=== PATIENT | female | born 1945 | race Caucasian/White ===

== ENCOUNTER 2020-12-15 08:18 | Outpatient (REF) | payer MEDICARE, SELFPAY ==
--- NOTE | ~2020-12-15 | MM_ITS ---
EXAMINATION: BONE DENSITOMETRY CLINICAL INDICATION: Vitamin B12 deficiency. 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 COMPARISON: Previous BD dated 12/15/2015 and baseline BD dated 12/28/2009. TECHNIQUE: Using a Done In :60 Seconds DXA System (software version: 13.1) manufactured by [employer], dual-energy x-ray absorptiometry was performed of the lumbar spine and left hip. The images are of good technical quality. Summary results are attached. FINDINGS: AP SPINE L1-L4: Current: BMD 1.304 g/cm2, Z-score 1.6, T-score 1.0, normal, 3.3% increase from previous, 9.3% increase from baseline (<5% change is not significant). Prior: BMD 1.262 g/cm2. Baseline: BMD 1.193 g/cm2. LEFT FEMUR, NECK: Current: BMD 0.796 g/cm2, Z-score -0.5, T-score -1.7, osteopenia. Prior: BMD 0.830 g/cm2. Baseline: BMD 0.972 g/cm2. LEFT FEMUR, TOTAL: Current: BMD 0.951 g/cm2, Z-score 0.5, T-score -0.4, normal, 1.7% decrease from previous, 10.5% decrease from baseline (<5% change is not significant). Prior: BMD 0.967 g/cm2. Baseline: BMD 1.063 g/cm2. IDENTIFIED RISK FACTORS: Menopause, height loss, low calcium intake. HISTORY OF FRACTURE: None listed. MEDICATIONS: None listed. MM/XR DEXA axial skeleton IMPRESSION: 1. DIAGNOSIS: Osteopenia based on the lowest T-score value of -1.7 in the femoral neck applying World Health Organization criteria. 2. 10-YEAR FRACTURE RISK PREDICTION, FRAX: Major osteoporotic fracture (clinical spine, forearm, hip or shoulder) 11.8%. Hip fracture 2.7%. 3. Treatment Recommendations: NOF guidelines recommend consideration for treatment in postmenopausal women and men age 50 and older presenting with the following: -A hip or vertebral (clinical or morphometric) fracture. -T-score less than or equal to -2.5 at the femoral neck or spine after appropriate evaluation to exclude secondary causes. -Low bone mass at the hip or spine and a 10-year fracture probability by FRAX of greater than or equal to 3% for hip fracture or greater than or equal to 20% for major osteoporotic fracture based on the [place] adapted WHO algorithm. 4. Other Recommendations: All treatment decisions require clinical judgment and consideration of individual patient factors, including patient preferences, comorbidities, previous drug use, risk factors not captured in the FRAX model (e.g. frailty, falls, vitamin D deficiency, increased bone turnover, interval significant decline in bone density) and possible under or overestimation of fracture risk by FRAX. Additional medical evaluation for secondary cause of low bone mineral density may be appropriate. FUTURE SCAN RECOMMENDATION: People with diagnosed cases of osteoporosis or at high risk for fracture should have regular bone mineral density tests. For patients eligible for Medicare, routine testing is allowed once every 2 years. The testing frequency can be increased to one year for patients who have rapidly progressing disease, those who are receiving or discontinuing medical therapy to restore bone mass, or have additional risk factors.
--- NOTE | ~2020-12-15 | MM_ITS ---
EXAMINATION: MM SCREENING DIGITAL BREAST TOMOSYNTHESIS, BILATERAL CLINICAL INFORMATION: Screening. Asymptomatic. The lifetime risk of breast cancer based on the Tyrer-Cuzick Model is 2.3%. COMPARISON: Mammography: December 15, 2015 and studies dating back to February 26, 2013 TECHNIQUE: Digital breast tomosynthesis is performed in both the craniocaudal and mediolateral oblique views along with computer-aided detection (CAD). Synthesized 2D images are generated from the tomosynthesis. FINDINGS: There are scattered areas of fibroglandular density (ACR BI-RADS breast composition Category b). There are no significant masses, abnormal calcifications, or other abnormalities. MM/MM tomosynthesis screening BI IMPRESSION: There are no significant changes from prior study. ASSESSMENT: BI-RADS 1: Negative RECOMMENDATION: Routine annual mammography screening. This patient's information was entered into a reminder system with a target due date for their next mammogram.
[2020-12-15 08:48] LABS: MANUAL DIFF FLAG NO
[2020-12-15 08:51] LABS: Basophils Percent Auto 0.6 % (0-2); Eosinophils Absolute Auto 0.1 X10*3/uL (0.0-0.4); Eosinophils Percent Auto 1.4 % (0-4); Hematocrit 42.1 % (37-47); Hemoglobin 13.9 g/dl (12.0-16.0); Imm Gran Abs Auto 0.02 X10*3/uL (0.00-0.03); Imm Gran Pct Auto 0.4 % (0.0-0.4); Immature Retic Fraction 8.3 % (3.0-15.9); Lymphocytes Absolute Auto 1.7 X10*3/uL (1.2-4.9); Lymphocytes Percent Auto 35.1 % (20-40); Mean Platelet Volume 10.5 fL (9.4-12.3); Monocytes Absolute Auto 0.5 X10*3/uL (0.1-1.2); Monocytes Percent Auto 10.3 % (2-11); Neutrophils Absolute Auto 2.5 X10*3/uL (2.0-8.3); Neutrophils Percent Auto 52.2 % (45-73); Platelet Count 236 X10*3/uL (160-400); Red Blood Count 4.48 X10*6/uL (4.20-5.50); Red Cell Distribution Width 12.6 % (11.0-16.0); Retic HGB Equivalent 36.1 pg (30.0-35.0); Reticulocyte Percent 1.7 % (0.5-1.8); Reticulocytes Absolute 0.077 X10*6/uL (0.026-0.095); White Blood Count 4.8 X10*3/uL (4.8-10.8)
[2020-12-15 09:02] LABS: Estimated Average Glucose 111 mg/dL; Hemoglobin A1C 133.2986 umol/L; Hemoglobin A1c % 5.5 %
[2020-12-15 09:22] LABS: Alanine Aminotransferase 18 U/L (0-31); Albumin Level 4.3 g/dL (3.5-5.0); Alkaline Phosphatase 77 U/L (39-117); Anion Gap 13 (12-20); Aspartate Amino Transferase 21 U/L (5-31); Bilirubin Total 0.6 mg/dL (0.0-1.0); Blood Urea Nitrogen 17 mg/dL (9-16); Calcium 9.7 mg/dL (8.4-10.2); Carbon Dioxide 27 mmol/L (22-29); Chloride 106 mmol/L (96-108); Cholesterol 212 mg/dL; Estimated Glomerular Filt Rate > 60; Glucose Random 111 mg/dL (60-115); HDL Cholesterol 69 mg/dL; Iron 85 mcg/dL (30-160); LDL Cholesterol Calculated 121 mg/dl; Percent Iron Saturation 25 % (15-50); Potassium 4.4 mmol/L (3.3-5.1); Sodium 142 mmol/L (135-145); Total Iron Binding Capacity 336 mcg/dL (228-428); Total Protein 6.8 g/dL (6.5-8.0); Triglycerides 112 mg/dL; Unsaturated Iron Binding 251 ug/dL
[2020-12-15 09:45] LABS: Ferritin 164 ng/mL (10-250); Free T4 (Free Thyroxine) 1.25 ng/dL (0.71-1.85); Thyroid Stimulating Hormone 0.49 uIU/mL (0.32-4.0); Vitamin D 25-OH Total 12.6 ng/mL (>30)
[2020-12-15 10:00] LABS: Folate 10.1 ng/mL (> or = 4.0); Vitamin B12 228 pg/mL (200-900)
== END 2020-12-15 08:19 | disposition home or self-care (01) ==
LOC: HO.MAMMO 08:18
PROVIDERS: PCP Internal Medicine; Visit Provider Internal Medicine
DX: Z12.31 Encounter for screening mammogram for malignant neoplasm of breast (principal); Z13.820 Encounter for screening for osteoporosis; M85.80 Other specified disorders of bone density and structure, unspecified site; Z78.0 Asymptomatic menopausal state; D51.0 Vitamin B12 deficiency anemia due to intrinsic factor deficiency; E03.9 Hypothyroidism, unspecified; E78.00 Pure hypercholesterolemia, unspecified; R73.02 Impaired glucose tolerance (oral)
CPT/HCPCS: 36415; 77063; 77067; 77080; 80053; 80061; 82306; 82607; 82728; 82746; 83036; 83540; 84439; 84443; 85025; 85045

== ENCOUNTER 2021-03-15 13:05 | Outpatient (REF) | payer MEDICARE, SELFPAY ==
--- NOTE | ~2021-03-15 | US_ITS ---
EXAMINATION: US EXTRACRANIAL CAROTID DUPLEX, BILATERAL CLINICAL INFORMATION: Syncope and collapse COMPARISON: None TECHNIQUE: Real-time ultrasound and Doppler techniques (integrating B-mode 2-D vascular images, Doppler spectral analysis and color-flow Doppler imaging) were utilized to interrogate the extracranial carotid arteries, the vertebral arteries and proximal subclavian arteries bilaterally. The degree of stenosis is determined by criteria similar to NASCET. FINDINGS: Right Side: 1. There is no significant atherosclerotic plaque seen in the bifurcation/proximal ICA region. 2. The common carotid artery PSV proximally is 82 cm/s and distally 51 cm/s. 3. The proximal internal carotid artery velocities are 72 cm/s systolic and 20 cm/s diastolic. 4. The proximal external carotid artery PSV is 68 cm/s. 5. The vertebral artery shows antegrade flow. 6. The subclavian artery waveforms are normal. Left Side: 1. There is mild atherosclerotic plaque seen in the bifurcation/proximal ICA region. 2. The common carotid artery PSV proximally is 106 cm/s and distally 74 cm/s. 3. The proximal internal carotid artery velocities are 73 cm/s systolic and 23 cm/s diastolic. 4. The proximal external carotid artery PSV is 73 cm/s. 5. The vertebral artery shows antegrade flow. 6. The subclavian artery waveforms are normal. US/US carotid duplex BI IMPRESSION: 1. RIGHT: Normal right internal carotid artery without atherosclerotic plaque or hemodynamically significant stenosis. 2. LEFT: Minimal, non-hemodynamically significant stenosis of the proximal left internal carotid artery corresponding to a 0-49% stenosis by velocity criteria.
--- NOTE | 2021-03-15 14:12 | ECG_ITS ---
Hook-up date: 2021-03-15 14:27:00 Duration: 47:59:00 Test Indications: SYNCOPE AND COLLAPSE Medications: 58985 QRS complexes 12 Ventricular ectopics which represent <1 % of total QRS comp. 46281 Supraventricular ectopics which represent 16 % of total QRS comp. * Paced QRS complexs which represent % of total QRS comp. VENTRICULAR ECTOPY 10 Isolated 0 Bigeminal Cycles 1 Couplets 0 Runs 0 Beats in Runs * Beats LONGEST at * BPM at :: -- * Beats FASTEST at * BPM at :: -- SUPRAVENTRICULAR ECTOPY 8886 Isolated 1438 Couplets 1041 Runs 3347 Beats in Runs 11 Beats LONGEST at 105 BPM at 09:08:14 2021-03-16 3 Beats FASTEST at 220 BPM at 11:20:38 2021-03-16 HEART RATES 55 MIN at 07:59:42 2021-03-16 61 AVG 110 MAX at 14:29:25 2021-03-15 LONGEST RR 1.7680 secs at 11:17:41 2021-03-16 S-T LEVELS Channel 1 - 128 mm at 14:27:00 2021-03-15 - 128 mm at 14:27:00 2021-03-15 Channel 2 - 128 mm at 14:27:00 2021-03-15 - 128 mm at 14:27:00 2021-03-15 Channel 3 - 128 mm at 03:34:61 -- - 128 mm at 03:34:61 Basic rhythm Normal sinus rhythm No long pause or profound bradycardia Frequent Sinus bradycardia , 53% of total beats Frequent Premature atrial complexes , 17% of total beats Multiple short runs of SVE, c/w SVT longest 11 beats Patient did not report any symptoms in the diary Referred By: Larry Arellano Overread By: SATYA CHANG MD
== END 2021-03-15 13:06 | disposition home or self-care (01) ==
LOC: HO.US 13:05
PROVIDERS: PCP Internal Medicine; Visit Provider Internal Medicine
DX: R55 Syncope and collapse (principal)
CPT/HCPCS: 93225; 93226; 93880

== ENCOUNTER 2021-04-10 12:55 | Outpatient (REF) | payer MEDICARE, SELFPAY ==
--- NOTE | 2021-04-10 12:59 | EEG_ITS ---
The waking background activity consists of a well-defined 10 to 11 hertz alpha that is seen symmetrically and attenuates well with eye opening while low-voltage fast frequencies predominant anteriorly. Drowsiness is characterized by diffuse theta slowing. During sleep stages 1 through 3 of sleep are noted with symmetrical frontal central sleep spindles, vertex sharp transients, and K complexes. Arousals are frequent and unremarkable. The patient remains asymptomatic except for some chills at times. No focal, lateralizing, or paroxysmal discharges seen. IMPRESSION: This 24-hour ambulatory EEG is within normal limits with the patient remaining asymptomatic. The EKG rhythm shows fairly an irregular heart rhythm with bradycardia and possible periods of atrial fibrillation. A 72-hour Holter monitor is recommended. MD JESSICA Fan/VANDANA / [phone]
== END 2021-04-10 12:56 | disposition home or self-care (01) ==
LOC: HO.NEURO 12:55
PROVIDERS: PCP Internal Medicine; Visit Provider Internal Medicine
DX: R55 Syncope and collapse (principal); R00.1 Bradycardia, unspecified
CPT/HCPCS: 95708

== ENCOUNTER → 2021-06-08 13:41 | Outpatient (REF) | payer MEDICARE, SELFPAY ==
--- NOTE | 2021-06-08 13:47 | HM_ITS ---
Total monitoring time 2 days in 21 hours. Underlying rhythm is sinus. Minimum heart rate 51/Min. Maximum 120/Min. Average 64/Min. Frequent supraventricular ectopy with burden of almost 12%. Isolated beats, couplets, short runs noted. Longest run is 14 beats and atrial fibrillation cannot be excluded in this strip. Rare PVCs with minimal burden. No patient events. MTDD
== END ==
LOC: HO.CARD 13:41
PROVIDERS: Visit Provider Internal Medicine
DX: R55 Syncope and collapse (principal)
CPT/HCPCS: 93242

== ENCOUNTER 2021-12-26 10:35 | Outpatient (REF) | payer MEDICARE, SELFPAY ==
--- NOTE | ~2021-12-26 | MM_ITS ---
EXAMINATION: MM SCREENING DIGITAL BREAST TOMOSYNTHESIS, BILATERAL CLINICAL INFORMATION: Screening. Asymptomatic. The lifetime risk of breast cancer based on the Tyrer-Cuzick Model is 2%. COMPARISON: Mammography: 12/15/2020; outside mammography 09/22/2018, 05/19/2017 ([facility]). TECHNIQUE: Digital breast tomosynthesis is performed in both the craniocaudal and mediolateral oblique views along with computer-aided detection (CAD). Synthesized 2D images are generated from the tomosynthesis. Additional bilateral exaggerated CC views are provided. FINDINGS: There are scattered areas of fibroglandular density (ACR BI-RADS breast composition Category b). There is denser bilateral parenchymal tissue composition in the anterior breasts. Parenchymal pattern is similar to prior studies. There is no developing density or interval mass or architectural abnormality. No abnormal calcifications. The axilla and skin contours are unremarkable. MM/MM tomosynthesis screening BI IMPRESSION: No significant changes from prior exams. ASSESSMENT: BI-RADS 1: Negative RECOMMENDATION: Routine annual mammography screening. This patient's information was entered into a reminder system with a target due date for their next mammogram.
--- NOTE | ~2021-12-26 | XR_ITS ---
EXAMINATION: BILATERAL KNEE. CLINICAL INFORMATION: Pain. There is stability. COMPARISON: None TECHNIQUE: 2 views each knee. FINDINGS: Right knee: There is segment loss of medial and patellofemoral compartment joint space with moderate periarticular spurring patellofemoral compartment. No loose bodies seen. There is no bony erosive changes. No fracture or dislocation. Left knee: There is severe loss of medial and patellofemoral compartment with moderate periarticular spurring. There is a small infrapatellar loose body. Minimal suprapatellar joint effusion seen. No acute fracture or bony erosive changes. XR/XR knee RT 2V IMPRESSION: Significant degenerative changes in medial and patellofemoral compartment of both knees. No joint effusion seen. There is a small loose body seen in the infrapatellar bursa.
--- NOTE | ~2021-12-26 | XR_ITS ---
EXAMINATION: BILATERAL KNEE. CLINICAL INFORMATION: Pain. There is stability. COMPARISON: None TECHNIQUE: 2 views each knee. FINDINGS: Right knee: There is segment loss of medial and patellofemoral compartment joint space with moderate periarticular spurring patellofemoral compartment. No loose bodies seen. There is no bony erosive changes. No fracture or dislocation. Left knee: There is severe loss of medial and patellofemoral compartment with moderate periarticular spurring. There is a small infrapatellar loose body. Minimal suprapatellar joint effusion seen. No acute fracture or bony erosive changes. XR/XR knee LT 2V IMPRESSION: Significant degenerative changes in medial and patellofemoral compartment of both knees. No joint effusion seen. There is a small loose body seen in the infrapatellar bursa.
== END 2021-12-26 10:36 | disposition home or self-care (01) ==
LOC: HO.MAMMO 10:35
PROVIDERS: PCP Internal Medicine; Visit Provider Internal Medicine
DX: M25.562 Pain in left knee (principal); M25.561 Pain in right knee; M25.369 Other instability, unspecified knee; Z12.31 Encounter for screening mammogram for malignant neoplasm of breast
CPT/HCPCS: 73560; 77063; 77067

== ENCOUNTER 2022-02-07 08:15 | Outpatient (REF) | payer MEDICARE, SELFPAY ==
[2022-02-07 08:33] LABS: MANUAL DIFF FLAG NO
[2022-02-07 08:49] LABS: Basophils Percent Auto 0.6 % (0-2); Eosinophils Absolute Auto 0.1 X10*3/uL (0.0-0.4); Eosinophils Percent Auto 1.7 % (0-4); Hematocrit 42.4 % (37.0-47.0); Imm Gran Abs Auto 0.01 X10*3/uL (0.00-0.03); Imm Gran Pct Auto 0.2 % (0.0-0.4); Immature Retic Fraction 7.4 % (3.0-15.9); Lymphocytes Absolute Auto 1.9 X10*3/uL (1.2-4.9); Lymphocytes Percent Auto 38.9 % (20-40); Mean Corpuscular Hemoglobin 30.4 pg (27.0-33.0); Mean Corpuscular Volume 92.2 fL (80.0-98.0); Monocytes Absolute Auto 0.6 X10*3/uL (0.1-1.2); Monocytes Percent Auto 12.8 % (2-11); Neutrophils Absolute Auto 2.2 x10*3/uL (2.0-8.3); Neutrophils Percent Auto 45.8 % (45-73); Platelet Count 258 X10*3/uL (160-400); Red Cell Distribution Width 12.5 % (11.0-16.0); Reticulocyte Percent 1.6 % (0.5-1.8); Reticulocytes Absolute 0.074 X10*6/uL (0.026-0.095); White Blood Count 4.8 X10*3/uL (4.8-10.8)
[2022-02-07 08:56] LABS: D Dimer High Sensitivity 378 NG/ML
[2022-02-07 08:58] LABS: Estimated Average Glucose 105 mg/dL; Hemoglobin A1c % 5.3 %
[2022-02-07 09:11] LABS: Alanine Aminotransferase 10 U/L (0-31); Albumin Level 4.1 g/dL (3.5-5.0); Alkaline Phosphatase 71 U/L (39-117); Anion Gap 14 (12-20); Aspartate Amino Transferase 17 U/L (5-31); Bilirubin Total 0.6 mg/dL (0.0-1.0); Blood Urea Nitrogen 11 mg/dL (9-16); Calcium 9.9 mg/dL (8.4-10.2); Carbon Dioxide 29 mmol/L (22-29); Chloride 103 mmol/L (96-108); Cholesterol 197 mg/dL; Estimated Glomerular Filt Rate > 60; Glucose Random 108 mg/dL (60-115); HDL Cholesterol 73 mg/dL; Iron 113 mcg/dL (30-160); LDL Cholesterol Calculated 97 mg/dl; Percent Iron Saturation 38 % (15-50); Potassium 4.5 mmol/L (3.3-5.1); Sodium 141 mmol/L (135-145); Total Iron Binding Capacity 299 mcg/dL (228-428); Total Protein 6.8 g/dL (6.5-8.0); Triglycerides 139 mg/dL; Unsaturated Iron Binding 186 ug/dL
[2022-02-07 09:33] LABS: Ferritin 174 ng/mL (10-250); Free T4 (Free Thyroxine) 1.62 ng/dL (0.71-1.85); Thyroid Stimulating Hormone 0.42 uIU/mL (0.32-4.0)
[2022-02-07 09:42] LABS: Folate 8.9 ng/mL (> or = 4.0); Vitamin B12 663 pg/mL (200-900)
== END 2022-02-07 08:16 | disposition home or self-care (01) ==
LOC: HO.LAB 08:15
PROVIDERS: PCP Internal Medicine; Visit Provider Internal Medicine
DX: D51.0 Vitamin B12 deficiency anemia due to intrinsic factor deficiency (principal); E03.9 Hypothyroidism, unspecified; E78.00 Pure hypercholesterolemia, unspecified; R73.02 Impaired glucose tolerance (oral); I73.9 Peripheral vascular disease, unspecified
CPT/HCPCS: 36415; 80053; 80061; 82607; 82728; 82746; 83036; 83540; 84439; 84443; 85025; 85045; 85379

== ENCOUNTER 2022-09-13 11:41 | Outpatient (REF) | payer MEDICARE, SELFPAY ==
[2022-09-13 11:59] LABS: MANUAL DIFF FLAG NO
[2022-09-13 12:21] LABS: Basophils Percent Auto 0.5 % (0-2); Eosinophils Percent Auto 0.2 % (0-4); Hemoglobin 13.9 g/dl (12.0-16.0); Imm Gran Abs Auto 0.02 X10*3/uL (0.00-0.03); Imm Gran Pct Auto 0.2 % (0.0-0.4); Lymphocytes Absolute Auto 1.6 X10*3/uL (1.2-4.9); Lymphocytes Percent Auto 19.5 % (20-40); Mean Corpuscular HGB Conc 33.1 g/dl (31.0-35.0); Mean Corpuscular Hemoglobin 30.9 pg (27.0-33.0); Mean Corpuscular Volume 93.3 fL (80.0-98.0); Mean Platelet Volume 10.4 fL (9.4-12.3); Monocytes Absolute Auto 0.6 X10*3/uL (0.1-1.2); Monocytes Percent Auto 7.5 % (2-11); Neutrophils Absolute Auto 5.8 x10*3/uL (2.0-8.3); Neutrophils Percent Auto 72.1 % (45-73); Platelet Count 250 X10*3/uL (160-400); Red Cell Distribution Width 12.2 % (11.0-16.0); White Blood Count 8.1 X10*3/uL (4.8-10.8)
[2022-09-13 12:54] LABS: Alanine Aminotransferase 19 U/L (0-31); Albumin Level 4.2 g/dL (3.5-5.0); Alkaline Phosphatase 107 U/L (39-117); Anion Gap 15 (12-20); Aspartate Amino Transferase 26 U/L (5-31); Bilirubin Total 0.7 mg/dL (0.0-1.0); Blood Urea Nitrogen 23 mg/dL (9-16); Calcium 9.8 mg/dL (8.4-10.2); Carbon Dioxide 25 mmol/L (22-29); Chloride 103 mmol/L (96-108); Estimated Glomerular Filt Rate > 60; Glucose Random 113 mg/dL (60-115); Potassium 4.4 mmol/L (3.3-5.1); Sodium 139 mmol/L (135-145); Total Protein 6.9 g/dL (6.5-8.0)
[2022-09-13 13:14] LABS: Free T4 (Free Thyroxine) 1.32 ng/dL (0.71-1.85); Thyroid Stimulating Hormone 2.51 uIU/mL (0.32-4.0)
[2022-09-13 13:19] LABS: Appearance Urine Clear; Color Urine Yellow; Glucose Urine UA Negative (Negative); Leukocyte Esterase Urine Moderate (2+) (Negative); Nitrite Urine Negative (Negative); PH 5.5 (5.0-9.0); UMIC TRIGGER UA YES; Urine Blood Negative (Negative); Urine Ketones Negative (Negative); Urine Protein Negative (Neg-Trace)
[2022-09-13 13:29] LABS: Bacteria Urine None Seen (None Seen); Hyaline Casts Urine 0-2 /LPF (0-2); RBC Urine 0-2 /HPF (0-2); Squamous Epithelial Cell Urine 0-2 /HPF (0-2); WBC Urine 0-5 /HPF (0-5)
== END 2022-09-13 11:42 | disposition home or self-care (01) ==
LOC: HO.LAB 11:41
PROVIDERS: PCP Internal Medicine; Visit Provider Internal Medicine
DX: B35.6 Tinea cruris (principal); R42 Dizziness and giddiness; E03.9 Hypothyroidism, unspecified
CPT/HCPCS: 36415; 80053; 81001; 84439; 84443; 85025

== ENCOUNTER 2023-02-07 12:45 | Outpatient (REF) | payer MEDICARE, SELFPAY ==
--- NOTE | ~2023-02-07 | MM_ITS ---
EXAMINATION: BONE DENSITOMETRY CLINICAL INDICATION: Osteoporosis. COMPARISON: Previous BD dated 12/15/2020 and baseline BD dated 12/28/2009. TECHNIQUE: Using a [employer] DXA System (software version: 13.1) manufactured by [employer], dual-energy x-ray absorptiometry was performed of the lumbar spine and left hip. The images are of good technical quality. Summary results are attached. FINDINGS: LEFT FEMUR, NECK: Current: BMD 0.797 g/cm2, Z-score -0.4, T-score -1.7, osteopenia. Prior: BMD 0.796 g/cm2. Baseline: BMD 0.972 g/cm2. LEFT FEMUR, TOTAL: Current: BMD 0.911 g/cm2, Z-score 0.3, T-score -0.8, normal, 4.2% decrease from previous, 14.3% decrease from baseline (<5% change is not significant). Prior: BMD 0.951 g/cm2. Baseline: BMD 1.063 g/cm2. AP SPINE L1-L4: Current: BMD 1.280 g/cm2, Z-score 1.5, T-score 0.8, normal, 1.8% decrease from previous, 7.3% increase from baseline (<5% change is not significant). Prior: BMD 1.304 g/cm2. Baseline: BMD 1.193 g/cm2. IDENTIFIED RISK FACTORS: Menopause. HISTORY OF FRACTURE: None listed. MEDICATIONS: Vitamin D. MM/XR DEXA axial skeleton IMPRESSION: 1. DIAGNOSIS: Osteopenia based on the lowest T-score value of -1.7 in the femoral neck applying World Health Organization criteria. 2. 10-YEAR FRACTURE RISK PREDICTION, FRAX: Major osteoporotic fracture (clinical spine, forearm, hip or shoulder) 12.8%. Hip fracture 3.1%. 3. Treatment Recommendations: NOF guidelines recommend consideration for treatment in postmenopausal women and men age 50 and older presenting with the following: -A hip or vertebral (clinical or morphometric) fracture. -T-score less than or equal to -2.5 at the femoral neck or spine after appropriate evaluation to exclude secondary causes. -Low bone mass at the hip or spine and a 10-year fracture probability by FRAX of greater than or equal to 3% for hip fracture or greater than or equal to 20% for major osteoporotic fracture based on the [place] adapted WHO algorithm. 4. Other Recommendations: All treatment decisions require clinical judgment and consideration of individual patient factors, including patient preferences, comorbidities, previous drug use, risk factors not captured in the FRAX model (e.g. frailty, falls, vitamin D deficiency, increased bone turnover, interval significant decline in bone density) and possible under or overestimation of fracture risk by FRAX. Additional medical evaluation for secondary cause of low bone mineral density may be appropriate. FUTURE SCAN RECOMMENDATION: People with diagnosed cases of osteoporosis or at high risk for fracture should have regular bone mineral density tests. For patients eligible for Medicare, routine testing is allowed once every 2 years. The testing frequency can be increased to one year for patients who have rapidly progressing disease, those who are receiving or discontinuing medical therapy to restore bone mass, or have additional risk factors.
== END 2023-02-07 12:46 | disposition home or self-care (01) ==
LOC: HO.MAMMO 12:45
PROVIDERS: Visit Provider Internal Medicine
DX: Z12.31 Encounter for screening mammogram for malignant neoplasm of breast (principal); M81.0 Age-related osteoporosis without current pathological fracture; M85.80 Other specified disorders of bone density and structure, unspecified site
CPT/HCPCS: 77063; 77067; 77080

== ENCOUNTER → 2023-02-07 12:45 | Outpatient (BNV) | payer MEDICARE, SELFPAY | PROVIDERS: Visit Provider Radiology Diagnostic Radiology | DX: Z12.31 Encounter for screening mammogram for malignant neoplasm of breast (principal) | CPT/HCPCS: 77063; 77067; 77080 ==

== ENCOUNTER 2023-04-10 14:46 | Outpatient (AMB) | payer MEDICARE, SELFPAY ==
[2023-04-10 14:48] VITALS: BP 122/78; PULSE 55; O2SAT 97; BMI 34.8
--- NOTE | 2023-04-10 14:48 | A.OFFPC_ITS ---
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: No Accompanied by: Self / Same As Patient Allergies No Known Allergies Allergy (Verified 04/10/23 14:52) Medication List - Last Reconciled 04/10/23 by Larry Arellano MD biotin (Hair, Skin and Nails (biotin)) mcg PO cholecalciferol (vitamin D3) 25 mcg PO DAILY clotrimazole 1% 1 appl topical BID 4 weeks cyanocobalamin (vitamin B-12) 1,000 mcg PO DAILY levothyroxine 137 mcg PO DAILY metoprolol succinate ER 25 mg PO DAILY miconazole nitrate 2% (Zeasorb AF) 1 appl topical BID Tobacco use date assessed: 09/13/22 Fall risk assessment: No Falls in past year Last assessed Fall Risk: 04/10/23 Dental Screening Dental Screen Date: 04/10/23 Did you have a dental visit in the last 12 months?: Yes Did you have a dental problem in the last 6 months where you did not have access to dental care?: No Was dental information given to patient?: Patient has dentist HPI Hypertension HPI Details 77-year-old obese female with hypothyroi dism pernicious anemia impaired glucose tolerance and hypertension coming in for follow-up. Last seen in December 2022. Mammogram is up-to-date bone density is up-to-date colonoscopy done in January 2017 with tubular adenoma. [facility] Medical History (Updated 04/10/23 @ 15:34 by Larry Arellano MD) Breast cancer screening by mammogram Knee buckling Lyme disease Peripheral vascular disease Hypercholesterolemia Obesity (BMI 30-39.9) Pernicious anemia Vitamin D deficiency Hypothyroid Surgical History No pertinent past surgical history Family History Father No problems noted. Mother Melanoma Maternal Grandfather CVD (cerebrovascular disease) Social History Housing: Condominium Alcohol intake: current Patient Tobacco Use Status: Former Tobacco user Tobacco use type: Cigarette Years Smoked: 29 years old e-Cigarette/Vaping Use: Never Used Second Hand Smoke Exposure: No service: No Current occupational status: retired Cognitive needs: Yes (cane ) Hearing needs: No Vision needs: Yes Questionnaire Thrive Questionnaire Date Thrive assessed: 09/13/22 STACI-7 AMB Questionnaire STACI-7 Date STACI - 7 assessed: 09/13/22 Source: Developed by Drs. Andrew Wei, Misa Diop, Arturo Medellin and colleagues, with an educational hood from [email or web address]. Physical exam (Primary Care) Vital Signs: Last Vital Signs Pulse 55 04/10/23 14:48 BP 122/78 04/10/23 14:48 Pulse Ox 97 04/10/23 14:48 Oxygen Delivery Method Room Air 04/10/23 14:48 BMI result Body Mass Index 34.8 Tobacco/Smoking Status: Tobacco use Status Tobacco use date assessed 09/13/22 04/10/23 14:55 Patient Tobacco Use Status Former Tobacco user 04/10/23 14:55 Tobacco use type Cigarette 04/10/23 14:55 e-Cigarette/Vaping Use Never Used 04/10/23 14:55 Thrive Assessment: Date of Thrive Assessment Date Thrive assessed 09/13/22 04/10/23 14:55 Const General: alert; No acute distress Eyes Conjunctivae: conjunctivae normal Resp Auscultation: clear to auscultation bilaterally Cardio Rate: regular rate Rhythm: regular rhythm GI Inspection: Yes normal to inspection Extrem General: Yes normal to inspection and No edema Assessment and Plan Assessment & Plan (1) Hypothyroid: Code(s): E03.9 - Hypothyroidism, unspecified Qualifiers: Hypothyroidism type: acquired Qualified Code(s): E03.9 - Hypothyroidism, unspecified Plan: Continue with thyroid medication will need blood work (2) Pernicious anemia: Code(s): D51.0 - Vitamin B12 deficiency anemia due to intrinsic factor deficiency Plan: Continue with vitamin B12 (3) Obesity (BMI 30-39.9): Code(s): E66.9 - Obesity, unspecified Plan: Diet and exercise (4) Hypercholesterolemia: Code(s): E78.00 - Pure hypercholesterolemia, unspecified Plan: Avoid fried foods, chicken skin, eggs, butter margarine, pastries and meat. Be it pork or beef they have a lot of cholesterol LDL goal of less than 130 and triglyceride of less than 150 January 2022 last blood work (5) Impaired glucose tolerance: Code(s): R73.02 - Impaired glucose tolerance (oral) Plan: Decrease the amount of carbohydrate intake, pasta, bread, rice and potatoes are all sugar and that is aside from all the sweet stuff, remember that fruits are good but they are Sweet also. (6) Hypertension: Code(s): I10 - Essential (primary) hypertension Plan: Continue with blood pressure medication. Decrease salt intake and exercise patient is taking metoprolol 25 mg once a day (7) Colon cancer screening: Comment: Tubular adenoma 2016 Code(s): Z12.11 - Encounter for screening for malignant neoplasm of colon Plan: Patient is mind about colonoscopy (8) Cognitive change: Code(s): R41.89 - Other symptoms and signs involving cognitive functions and awareness Plan: MMSE 04/10/2023 (9) Colon cancer screening declined: Code(s): Z53.20 - Procedure and treatment not carried out because of patient's decision for unspecified reasons (10) Osteopenia: Comment: 01/2023 Code(s): M85.80 - Other specified disorders of bone density and structure, unspecified site Orders: Referrals Neuropsychiatry Referral R41.89 - Other symptoms and signs involving cognitive functions and awareness Medications: New clotrimazole-betamethasone 1-0.05 % 1 appl topical BID 2 weeks 45 grams 0RF B35.6 - Tinea cruris Coding Level of Care Code Est Pt Level 4 (06062) Diagnoses Acquired hypothyroidism E03.9 Hypothyroidism type: acquired Pernicious anemia D51.0 Obesity (BMI 30-39.9) E66.9 Hypercholesterolemia E78.00 Impaired glucose tolerance R73.02 Hypertension I10 Colon cancer screening Z12. Cognitive change R41.89 Colon cancer screening declined Z53.20 Osteopenia M85.80
== END 2023-04-10 15:38 | disposition home or self-care (01) ==
PROVIDERS: PCP Internal Medicine; Visit Provider Internal Medicine
DX: E03.9 Hypothyroidism, unspecified (principal); D51.0 Vitamin B12 deficiency anemia due to intrinsic factor deficiency; E66.9 Obesity, unspecified; Z68.34 Body mass index [BMI] 34.0-34.9, adult; E78.00 Pure hypercholesterolemia, unspecified; R73.02 Impaired glucose tolerance (oral); I10 Essential (primary) hypertension; R41.89 Other symptoms and signs involving cognitive functions and awareness; Z53.20 Procedure and treatment not carried out because of patient's decision for unspecified reasons; M85.80 Other specified disorders of bone density and structure, unspecified site
CPT/HCPCS: 99214

== ENCOUNTER 2023-05-13 14:03 | Outpatient (REF) | payer MEDICARE, SELFPAY ==
[2023-05-13 15:18] LABS: Urine Cytology See Pathology rpt
[2023-05-13 15:22] LABS: Appearance Urine Clear; Color Urine Yellow; Glucose Urine UA Negative (Negative); Leukocyte Esterase Urine Moderate (2+) (Negative); Nitrite Urine Negative (Negative); PH 5.5 (5.0-9.0); Specific Gravity - Urine <= 1.005 (1.005-1.025); UMIC TRIGGER UACC YES; Urine Blood Moderate (2+) (Negative); Urine Ketones Negative (Negative); Urine Protein Negative (Neg-Trace)
[2023-05-13 15:39] LABS: Bacteria Urine None Seen (None Seen); Hyaline Casts Urine 0-2 /LPF (0-2); RBC Urine 0-2 /HPF (0-2); Squamous Epithelial Cell Urine 0-2 /HPF (0-2); UACC Culture Trigger YES; WBC Urine 21-50 /HPF (0-5)
== END 2023-05-13 14:04 | disposition home or self-care (01) ==
LOC: HO.LAB 14:03
PROVIDERS: PCP Internal Medicine; Visit Provider Internal Medicine
DX: R31.9 Hematuria, unspecified (principal)
CPT/HCPCS: 81001; 87086; 88112

== ENCOUNTER 2023-06-02 13:16 | Outpatient (REF) | payer MEDICARE, SELFPAY ==
[2023-06-02 13:31] LABS: MANUAL DIFF FLAG NO
[2023-06-02 14:28] LABS: Basophils Percent Auto 0.6 % (0-2); Eosinophils Absolute Auto 0.1 X10*3/uL (0.0-0.4); Eosinophils Percent Auto 1.1 % (0-4); Hematocrit 42.1 % (37.0-47.0); Hemoglobin 14.4 g/dl (12.0-16.0); Imm Gran Abs Auto 0.02 X10*3/uL (0.00-0.03); Imm Gran Pct Auto 0.3 % (0.0-0.4); Lymphocytes Absolute Auto 2.3 X10*3/uL (1.2-4.9); Lymphocytes Percent Auto 32.2 % (20-40); Mean Corpuscular HGB Conc 34.2 g/dl (31.0-35.0); Mean Corpuscular Hemoglobin 32.4 pg (27.0-33.0); Mean Corpuscular Volume 94.8 fL (80.0-98.0); Mean Platelet Volume 10.6 fL (9.4-12.3); Monocytes Absolute Auto 0.8 X10*3/uL (0.1-1.2); Monocytes Percent Auto 11.4 % (2-11); Neutrophils Absolute Auto 3.9 x10*3/uL (2.0-8.3); Neutrophils Percent Auto 54.4 % (45-73); Platelet Count 289 X10*3/uL (160-400); Red Blood Count 4.44 X10*6/uL (4.20-5.50); Red Cell Distribution Width 12.6 % (11.0-16.0); White Blood Count 7.1 X10*3/uL (4.8-10.8)
[2023-06-02 14:29] LABS: Appearance Urine Cloudy; Color Urine Yellow; Glucose Urine UA Negative (Negative); Leukocyte Esterase Urine Large (3+) (Negative); Nitrite Urine Negative (Negative); PH 8.5 (5.0-9.0); UMIC TRIGGER UACC YES; Urine Blood Trace (Negative); Urine Ketones Negative (Negative); Urine Protein Negative (Neg-Trace)
[2023-06-02 14:32] LABS: Bacteria Urine Trace (None Seen); Hyaline Casts Urine 0-2 /LPF (0-2); RBC Urine 0-2 /HPF (0-2); Squamous Epithelial Cell Urine 0-2 /HPF (0-2); UACC Culture Trigger YES; WBC Urine >50 /HPF (0-5)
[2023-06-02 15:38] LABS: Folate 8.8 ng/mL (> or = 4.0); Vitamin B12 1230 pg/mL (200-900)
== END 2023-06-02 13:17 | disposition home or self-care (01) ==
LOC: HO.LAB 13:16
PROVIDERS: PCP Internal Medicine; Visit Provider Internal Medicine
DX: E78.00 Pure hypercholesterolemia, unspecified (principal); R39.9 Unspecified symptoms and signs involving the genitourinary system
CPT/HCPCS: 36415; 81001; 82607; 82746; 85025; 87086; 87088; 87186

== ENCOUNTER 2023-09-04 07:57 | Outpatient (REF) | payer MEDICARE, SELFPAY ==
[2023-09-04 09:19] LABS: Alanine Aminotransferase 14 U/L (0-31); Albumin Level 4.2 g/dL (3.5-5.0); Alkaline Phosphatase 75 U/L (39-117); Anion Gap 11 (12-20); Aspartate Amino Transferase 20 U/L (5-31); Bilirubin Total 0.7 mg/dL (0.0-1.0); Blood Urea Nitrogen 11 mg/dL (9-16); Carbon Dioxide 28 mmol/L (22-29); Chloride 107 mmol/L (96-108); Cholesterol 212 mg/dL (<200); Estimated Glomerular Filt Rate > 60; Glucose Random 104 mg/dL (60-115); HDL Cholesterol 74 mg/dL (>40); LDL Cholesterol Calculated 117 mg/dL (<100); Potassium 4.4 mmol/L (3.3-5.1); Sodium 142 mmol/L (135-145); Total Protein 7.2 g/dL (6.5-8.0); Triglycerides 109 mg/dL (<150)
[2023-09-04 09:36] LABS: Thyroid Stimulating Hormone 0.38 uIU/mL (0.32-4.0); Vitamin D 25-OH Total 66.7 ng/mL (>30)
== END 2023-09-04 07:58 | disposition home or self-care (01) ==
LOC: HO.LAB 07:57
PROVIDERS: PCP Internal Medicine; Visit Provider Internal Medicine
DX: E78.00 Pure hypercholesterolemia, unspecified (principal); E03.9 Hypothyroidism, unspecified; R39.9 Unspecified symptoms and signs involving the genitourinary system
CPT/HCPCS: 36415; 80053; 80061; 82306; 84439; 84443

== ENCOUNTER 2023-09-09 14:48 | Outpatient (REF) | payer MEDICARE, SELFPAY ==
[2023-09-09 14:58] LABS: Appearance Urine Clear; Color Urine Yellow; Glucose Urine UA Negative (Negative); Leukocyte Esterase Urine Trace (Negative); Nitrite Urine Negative (Negative); UMIC TRIGGER UACC YES; Urine Blood Negative (Negative); Urine Ketones Negative (Negative); Urine Protein Negative (Neg-Trace)
[2023-09-09 15:12] LABS: Bacteria Urine None Seen (None Seen); Hyaline Casts Urine 0-2 /LPF (0-2); RBC Urine 0-2 /HPF (0-2); Squamous Epithelial Cell Urine 0-2 /HPF (0-2); WBC Urine 0-5 /HPF (0-5)
== END 2023-09-09 14:49 | disposition home or self-care (01) ==
LOC: HO.LNP 14:48
PROVIDERS: Visit Provider Internal Medicine
DX: R30.0 Dysuria (principal); R31.9 Hematuria, unspecified
CPT/HCPCS: 81001; 81003

== ENCOUNTER 2023-09-17 12:45 | Outpatient (AMB) | payer MEDICARE, SELFPAY ==
[2023-09-17 12:49] VITALS: BP 122/80; PULSE 78; O2SAT 98; BMI 34.1
--- NOTE | 2023-09-17 12:49 | A.OFFPC_ITS ---
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 Last seen in March 2023. Patient's mammogram is up-to-date bone density is up-to-date colonoscopy done in 2016. [facility] Medical History (Updated 05/13/23 @ 12:25 by Larry Arellano MD) Breast cancer screening by mammogram Knee buckling Lyme disease Peripheral vascular disease Hypercholesterolemia Obesity (BMI 30-39.9) Pernicious anemia Vitamin D deficiency Hypothyroid Surgical History No pertinent past surgical history Family History Father No problems noted. Mother Melanoma Maternal Grandfather CVD (cerebrovascular disease) Social History Housing: Condominium Alcohol intake: current Patient Tobacco Use Status: Former Tobacco user Tobacco use type: Cigarette Years Smoked: 29 years old e-Cigarette/Vaping Use: Never Used Second Hand Smoke Exposure: No service: No Current occupational status: retired Cognitive needs: Yes (cane ) Hearing needs: No Vision needs: Yes Questionnaire Thrive Questionnaire Date Thrive assessed: 09/17/23 I am a: Patient What is your living situation today?: I have a steady place to live Within the past 12 months, did the food you bought not last and you didn't have the money to get more?: Never true Within the past 12 months, did you worry whether your food would run out before you got money to buy more?: Never true THRIVE Score: 0 AUDIT C Alcohol Use Questionnaire (AUDIT-C) 1. How often do you have a drink containing alcohol?: 2-3 times a week 2. How many drinks containing alcohol do you have on a typical day when you are drinking?: 1 or 2 3. How often do you have six or more drinks on one occasion?: Never Total Score: 3 STACI-7 AMB Questionnaire STACI-7 Date STACI - 7 assessed: 09/13/22 Source: Developed by Drs. Andrew Wei, Misa Diop, Arturo Medellin and colleagues, with an educational hood from [employer]. Physical exam (Primary Care) Vital Signs: Last Vital Signs Pulse 78 09/17/23 12:49 BP 122/80 09/17/23 12:49 Pulse Ox 98 09/17/23 12:49 Oxygen Delivery Method Room Air 09/17/23 12:49 BMI result Body Mass Index 34.1 Tobacco/Smoking Status: Tobacco use Status Tobacco use date assessed 09/17/23 09/17/23 12:55 Patient Tobacco Use Status Former Tobacco user 09/17/23 12:55 Tobacco use type Cigarette 09/17/23 12:55 e-Cigarette/Vaping Use Never Used 09/17/23 12:55 Thrive Assessment: Date of Thrive Assessment Date Thrive assessed 09/17/23 09/17/23 12:55 Const General: alert; No acute distress Eyes Conjunctivae: conjunctivae normal Resp Auscultation: clear to auscultation bilaterally Cardio Rate: regular rate Rhythm: regular rhythm GI Inspection: Yes normal to inspection Extrem General: Yes normal to inspection and No edema Assessment and Plan Assessment & Plan (1) Colon cancer screening: Comment: Tubular adenoma 2016 Code(s): Z12.11 - Encounter for screening for malignant neoplasm of colon Plan: Patient is reminded about colon cancer screening. (2) Hypertension: Code(s): I10 - Essential (primary) hypertension Plan: Continue with blood pressure medication. Decrease salt intake and exercise takes metoprolol 25 mg once a day (3) Hypothyroid: Code(s): E03.9 - Hypothyroidism, unspecified Qualifiers: Hypothyroidism type: acquired Qualified Code(s): E03.9 - Hypothyroidism, unspecified Plan: Continue with thyroid medication 137 mcg once a (4) Obesity (BMI 30-39.9): Code(s): E66.9 - Obesity, unspecified Plan: Diet and exercise (5) Hypercholesterolemia: Code(s): E78.00 - Pure hypercholesterolemia, unspecified Plan: Avoid fried foods, chicken skin, eggs, butter margarine, pastries and meat. Be it pork or beef they have a lot of cholesterol LDL goal of less than 130 and triglyceride of less than 150. (6) Impaired glucose tolerance: Code(s): R73.02 - Impaired glucose tolerance (oral) Plan: Decrease the amount of carbohydrate intake, pasta, bread, rice and potatoes are all sugar and that is aside from all the sweet stuff, remember that fruits are good but they are Sweet also. Orders: Referrals Gastroenterology Referral Z12.11 - Encounter for screening for malignant neoplasm of colon Coding Level of Care Code Est Pt Level 4 (10092) Diagnoses Colon cancer screening Z12.11 Hypertension I10 Acquired hypothyroidism E03.9 Hypothyroidism type: acquired Obesity (BMI 30-39.9) E66.9 Hypercholesterolemia E78.00 Impaired glucose tolerance R73.02
== END 2023-09-17 13:30 | disposition home or self-care (01) ==
PROVIDERS: Visit Provider Internal Medicine
DX: I10 Essential (primary) hypertension (principal); E66.9 Obesity, unspecified; Z68.34 Body mass index [BMI] 34.0-34.9, adult; Z12.11 Encounter for screening for malignant neoplasm of colon; E03.9 Hypothyroidism, unspecified; E78.00 Pure hypercholesterolemia, unspecified; R73.02 Impaired glucose tolerance (oral)
CPT/HCPCS: 99214

== ENCOUNTER 2024-02-18 12:16 | Outpatient (AMB) | payer MEDICARE, SELFPAY ==
[2024-02-18 12:23] VITALS: BP 114/68; PULSE 58; O2SAT 97; BMI 31.8
--- NOTE | 2024-02-18 12:23 | MHC.PC.OV ---
Vital Signs 02/18/24 12:23 Height 5 ft 7 in Weight 203 lb BMI 31.8 BP 114/68 Blood Pressure Location Lt brachial Position Sitting Pulse 58 Pulse Source Pulse Oximeter Pulse Oximetry (%) 97 Oxygen Delivery Method Room Air Intake Visit Reasons: annual exam Allergies No Known Allergies Allergy (Verified 02/18/24 12:26) Medication List - Last Reconciled 02/18/24 by Larry Arellano MD biotin (Hair, Skin and Nails (biotin)) mcg PO cholecalciferol (vitamin D3) 25 mcg PO DAILY clotrimazole-betamethasone 1-0.05 % 1 appl topical BID 2 weeks cyanocobalamin (vitamin B-12) 1,000 mcg PO DAILY levothyroxine 137 mcg PO DAILY Tobacco use date assessed: 09/17/23 Fall risk assessment: No Falls in past year Last assessed Fall Risk: 02/18/24 Dental Screening Dental Screen Date: 02/18/24 Did you have a dental visit in the last 12 months?: Yes Did you have a dental problem in the last 6 months where you did not have access to dental care?: No Was dental information given to patient?: Patient has dentist HPI annual exam HPI Details 78-year-old obese female(noted 15 lb weight loss) with hypertension, impaired glucose tolerance hypothyroid and hypercholesterolemia coming in for physical exam. Patient's mammogram is due, bone density is up-to-date 02/09/2023. Colonoscopy is due. [facility] Medical History (Updated 02/18/24 @ 12:51 by Larry Arellano MD) Breast cancer screening by mammogram Knee buckling Lyme disease Peripheral vascular disease Hypercholesterolemia Obesity (BMI 30-39.9) Pernicious anemia Vitamin D deficiency Hypothyroid Surgical History No pertinent past surgical history Family History Father No problems noted. Mother Melanoma Maternal Grandfather CVD (cerebrovascular disease) Social History (Updated 02/18/24 @ 12:42 by Larry Arellano MD) Housing: Condominium Alcohol intake: current Comment: 3-4x a week 2 drinks Patient Tobacco Use Status: Former Tobacco user Tobacco use type: Cigarette Years Smoked: 29 years old e-Cigarette/Vaping Use: Never Used Second Hand Smoke Exposure: No service: No Current occupational status: retired Cognitive needs: Yes (cane ) Hearing needs: No Vision needs: Yes Questionnaire PHQ-9 Over the last 2 weeks, how often have you been bothered by any of the following problems? 1. Little interest or pleasure in doing things: not at all 2. Feeling down, depressed, or hopeless: not at all 3. Trouble falling or staying asleep, or sleeping too much: not at all 4. Feeling tired or having little energy: not at all 5. Poor appetite or overeating: not at all 6. Feeling bad about yourself - or that you are a failure or have let yourself or your family down: not at all 7. Trouble concentrating on things, such as reading the newspaper or watching television: not at all 8. Moving or speaking so slowly that other people could have noticed. Or the opposite - being so fidgety or restless that you have been moving around a lot more than usual: not at all 9. Thoughts that you would be better off or of hurting yourself in some way: not at all Total score: 0 Source: Developed by Drs. Andrew Wei, Misa Diop, Arturo Medellin and colleagues, with an educational hood from [employer]. Thrive Questionnaire Date Thrive assessed: 02/18/24 I am a: Patient What is your living situation today?: I have a steady place to live Within the past 12 months, did the food you bought not last and you didn't have the money to get more?: Never true Within the past 12 months, did you worry whether your food would run out before you got money to buy more?: Never true Do you have trouble paying for medicines?: No Do you have trouble getting transportation to medical appointments?: No Do you have trouble paying your heating and electricity bill?: No Do you have trouble taking care of your child, family member or friend?: No Do you have trouble with day-to-day activities such as bathing, preparing meals, shopping, managing finances, etc.?: No Are you currently unemployed and looking for a job?: No Are you interested in more education?: No Please select the resources that you would like help with: None Currently or been in a relationship where the following occur: No concerns reported THRIVE Score: 0 AUDIT C Alcohol Use Questionnaire (AUDIT-C) 1. How often do you have a drink containing alcohol?: 2-3 times a week 2. How many drinks containing alcohol do you have on a typical day when you are drinking?: 1 or 2 3. How often do you have six or more drinks on one occasion?: Never Total Score: 3 STCAI-7 AMB Questionnaire STACI-7 Date STACI - 7 assessed: 02/18/24 Feeling nervous, anxious, or on edge: 0 = Not at all Not being able to stop or control worryin = Not at all Worrying too much about different things: 0 = Not at all Trouble relaxin = Not at all Being so restless that it is hard to sit still: 0 = Not at all Becoming easily annoyed or irritable: 0 = Not at all Feeling afraid as if something awful might happen: 0 = Not at all Total STACI-7 score (0-4 normal; 5-9 mild; 10-14 moderate; 15-21 severe): 0 Source: Developed by Drs. Andrew Wei, Misa Diop, Arturo Medellin and colleagues, with an educational hood from [employer]. Review of Systems Const Denies poor appetite and Denies weakness Eyes Denies no additional complaints ENT Reports Normal hearing present, Denies dizziness, Denies nasal congestion, Denies tinnitus and Denies sore throat Card Denies chest pain, Denies syncope, Denies rapid heart rate and Denies dyspnea Resp Denies cough and Denies dyspnea GI Denies change in stool character, Reports constipation, Denies diarrhea, Denies nausea and Denies vomiting Denies urinary frequency, Denies difficulty voiding and Denies dysuria Neuro Reports Normal hearing present, Denies confusion, Denies dizziness, Denies syncope and Denies weakness Psych Denies confusion Physical exam (Primary Care) Vital Signs: Last Vital Signs Pulse 58 02/18/24 12:23 BP 114/68 02/18/24 12:23 Pulse Ox 97 02/18/24 12:23 Oxygen Delivery Method Room Air 02/18/24 12:23 BMI result Body Mass Index 31.8 Tobacco/Smoking Status: Tobacco use Status Tobacco use date assessed 09/17/23 02/18/24 12:25 Patient Tobacco Use Status Former Tobacco user 02/18/24 12:25 Tobacco use type Cigarette 02/18/24 12:25 e-Cigarette/Vaping Use Never Used 02/18/24 12:25 PHQ-9: PHQ-9 Score PHQ-9: Total score 0 02/18/24 12:25 Thrive Assessment: Date of Thrive Assessment Date Thrive assessed 02/18/24 02/18/24 12:33 Currently or been in a relationship where the following occur: No concerns reported Const General: No confusion Orientation/consciousness: No confusion HENMT Head: Yes normocephalic Ears: external ears normal and TM's normal bilaterally Face and sinus: Yes normal facial exam Mouth: moist mucous membranes Throat: Yes tonsils normal Eyes Conjunctivae: conjunctivae normal Pupils: Equal, round and reactive pupils present and Pupil accommodation reflex normal Direct Ophthalmoscopy: normal light reflex Neck Neck: No lymphadenopathy Thyroid: Thyroid normal Chest Chest palpation & inspection: normal inspection of the chest Resp Effort & Inspection: normal respiratory effort and no audible wheezes Auscultation: clear to auscultation bilaterally, no crackles, no wheezes and lung sounds not diminished Cardio Rate: regular rate Rhythm: regular rhythm Peripheral pulses: radial pulses present and dorsalis pedis present GI Other: decline since referred to GI Palpation (GI): no masses Auscultation: normal bowel sounds and normoactive bowel sounds Rectal Exam - Female: deferred Skin General skin exam: no rashes or lesions noted Rashes: no rashes Neuro General: No confusion Cranial nerves: Yes Equal, round and reactive pupils present and Yes Normal hearing present Cognition (Neuro): normal cognition Gait exam (Neuro): Normal gait present Motor exam (neuro): 5/5 motor strength present throughout Deep tendon reflexes (DTR's): Right brachioradialis reflex intensity grade: 2+, Left brachioradialis reflex intensity grade: 2+, Right patellar reflex intensity grade: 2+ and Left patellar reflex intensity grade: 2+ Extrem General: No edema Assessment and Plan Assessment & Plan (1) Annual physical exam: Code(s): Z00.00 - Encounter for general adult medical examination without abnormal findings Plan: Patient is advised to eat healthy, keep well hydrated, keep active and have adequate sleep. (2) Obesity (BMI 30-39.9): Code(s): E66.9 - Obesity, unspecified Plan: Continue with diet and exercise (3) Hypercholesterolemia: Code(s): E78.00 - Pure hypercholesterolemia, unspecified Plan: Avoid fried foods, chicken skin, eggs, butter margarine, pastries and meat. Be it pork or beef they have a lot of cholesterol LDL goal of less than 130 and triglyceride of less than 150. (4) Impaired glucose tolerance: Code(s): R73.02 - Impaired glucose tolerance (oral) Plan: Avoid the foods that causes that usually spicy foods, tomato products, juices, coffee, soda and foods that your sensitive to. After eating do not lie down, allow 3-4 hours before in lie down. And keep the head of bed above 30 degrees to avoid the acid from going up. (5) Hypothyroid: Code(s): E03.9 - Hypothyroidism, unspecified Qualifiers: Hypothyroidism type: acquired Qualified Code(s): E03.9 - Hypothyroidism, unspecified Plan: Continue with thyroid medication (6) Tubular adenoma of colon: Comment: Two thousand seventeen Code(s): D12.6 - Benign neoplasm of colon, unspecified Plan: Discussed about repeat colonoscopy (7) Breast cancer screening by mammogram: Code(s): Z12.31 - Encounter for screening mammogram for malignant neoplasm of breast Orders: Orders Complete Blood Count Auto Diff 3 Months E78.00 - Pure hypercholesterolemia, unspecified Comprehensive Met. Panel 3 Months E78.00 - Pure hypercholesterolemia, unspecified Lipid Panel 3 Months E78.00 - Pure hypercholesterolemia, unspecified Thyroid Stimulating Hormone 3 Months E78.00 - Pure hypercholesterolemia, unspecified Hemoglobin A1c 3 Months R73.02 - Impaired glucose tolerance (oral) Vitamin D 25-OH Total 3 Months R73.02 - Impaired glucose tolerance (oral) Free T4 (Free Thyroxine) 3 Months E78.00 - Pure hypercholesterolemia, unspecified Vitamin B12 and Folate 3 Months E78.00 - Pure hypercholesterolemia, unspecified MM tomosynthesis screening BI Today Z12.31 - Encounter for screening mammogram for malignant neoplasm of breast Referrals Gastroenterology Referral D12.6 - Benign neoplasm of colon, unspecified Coding Level of Care Code Est Pt Prev Care >65y(88991) Diagnoses Annual physical exam Z00.00 Obesity (BMI 30-39.9) E66.9 Hypercholesterolemia E78.00 Impaired glucose tolerance R73.02 Acquired hypothyroidism E03.9 Hypothyroidism type: acquired Tubular adenoma of colon D12.6 Breast cancer screening by mammogram Z12.31
== END 2024-02-18 12:55 | disposition home or self-care (01) ==
PROVIDERS: PCP Internal Medicine; Visit Provider Internal Medicine
DX: Z00.00 Encounter for general adult medical examination without abnormal findings (principal); E66.9 Obesity, unspecified; Z68.31 Body mass index [BMI] 31.0-31.9, adult; E78.00 Pure hypercholesterolemia, unspecified; R73.02 Impaired glucose tolerance (oral); E03.9 Hypothyroidism, unspecified; D12.6 Benign neoplasm of colon, unspecified; Z12.31 Encounter for screening mammogram for malignant neoplasm of breast
CPT/HCPCS: 99397

== ENCOUNTER 2024-05-03 12:09 | Outpatient (REF) | payer MEDICARE, SELFPAY ==
--- NOTE | ~2024-05-03 | MM_ITS ---
EXAMINATION: MM SCREENING DIGITAL BREAST TOMOSYNTHESIS, BILATERAL CLINICAL INFORMATION: Screening. Asymptomatic. COMPARISON: Mammography: Comparison is made with available priors TECHNIQUE: Digital breast mammography with tomosynthesis is performed in both the craniocaudal and mediolateral oblique views along with computer-aided detection (CAD). FINDINGS: The breasts are heterogeneously dense, which may obscure small masses (ACR BI-RADS breast composition Category c). There are no significant masses, abnormal calcifications, or other abnormalities. MM/MM tomosynthesis screening BI IMPRESSION: No mammographic evidence of malignancy. ASSESSMENT: BI-RADS BI-RADS 1 - Negative RECOMMENDATION: Routine annual mammography screening. 1 year F/U This examination should not preclude the clinical evaluation of a suspicious palpable abnormality. This patient's information was entered into a reminder system with a target due date for their next mammogram. Electronically signed by: Mariella De La Torre DO 05/12/2024 12:07 PM DANYELL
== END 2024-05-03 12:10 | disposition home or self-care (01) ==
LOC: HO.MAMMO 12:09
PROVIDERS: PCP Internal Medicine; Visit Provider Internal Medicine
DX: Z12.31 Encounter for screening mammogram for malignant neoplasm of breast (principal)
CPT/HCPCS: 77063; 77067

== ENCOUNTER → 2024-05-03 12:15 | Outpatient (BNV) | payer MEDICARE, SELFPAY | PROVIDERS: PCP Internal Medicine; Visit Provider Internal Medicine | DX: Z12.31 Encounter for screening mammogram for malignant neoplasm of breast (principal) | CPT/HCPCS: 77063; 77067 ==

== ENCOUNTER 2024-09-24 08:51 | Outpatient (REF) | payer MEDICARE, SELFPAY ==
[2024-09-24 09:10] LABS: MANUAL DIFF FLAG NO
[2024-09-24 09:38] LABS: Basophils Percent Auto 0.8 % (0-2); Eosinophils Absolute Auto 0.1 X10*3/uL (0.0-0.4); Eosinophils Percent Auto 2.1 % (0-4); Hematocrit 41.2 % (37.0-47.0); Hemoglobin 13.6 g/dl (12.0-16.0); Imm Gran Abs Auto 0.01 X10*3/uL (0.00-0.03); Imm Gran Pct Auto 0.2 % (0.0-0.4); Lymphocytes Absolute Auto 1.9 X10*3/uL (1.2-4.9); Lymphocytes Percent Auto 39.5 % (20-40); Mean Corpuscular Hemoglobin 30.6 pg (27.0-33.0); Mean Corpuscular Volume 92.8 fL (80.0-98.0); Mean Platelet Volume 10.3 fL (9.4-12.3); Monocytes Absolute Auto 0.5 X10*3/uL (0.1-1.2); Monocytes Percent Auto 10.5 % (2-11); Neutrophils Absolute Auto 2.2 x10*3/uL (2.0-8.3); Neutrophils Percent Auto 46.9 % (45-73); Platelet Count 254 X10*3/uL (160-400); Red Blood Count 4.44 X10*6/uL (4.20-5.50); Red Cell Distribution Width 12.6 % (11.0-16.0); White Blood Count 4.8 X10*3/uL (4.8-10.8)
[2024-09-24 11:12] LABS: Folate 9.7 ng/mL (> or = 4.0); Vitamin B12 > 2000 pg/mL (200-900)
[2024-09-24 11:26] LABS: Estimated Average Glucose 111 mg/dL; Hemoglobin A1C 130.6631 umol/L; Hemoglobin A1c % 5.5 % (<6.0); Total Hemoglobin (HGBA1C) 3521.4558 umol/L
[2024-09-24 11:29] LABS: Alanine Aminotransferase 12 U/L (0-31); Alkaline Phosphatase 88 U/L (39-117); Anion Gap 11 (12-20); Aspartate Amino Transferase 23 U/L (5-31); Bilirubin Total 0.7 mg/dL (0.0-1.0); Blood Urea Nitrogen 10 mg/dL (9-16); Calcium 9.5 mg/dL (8.4-10.2); Carbon Dioxide 27 mmol/L (22-29); Chloride 108 mmol/L (96-108); Cholesterol 197 mg/dL (<200); Estimated Glomerular Filt Rate > 60; Glucose Random 92 mg/dL (60-115); HDL Cholesterol 71 mg/dL (>40); LDL Cholesterol Calculated 110 mg/dL (<100); Potassium 4.1 mmol/L (3.3-5.1); Sodium 142 mmol/L (135-145); Total Protein 6.7 g/dL (6.5-8.0); Triglycerides 83 mg/dL (<150)
[2024-09-24 11:33] LABS: Free T4 (Free Thyroxine) 1.53 ng/dL (0.71-1.85); Thyroid Stimulating Hormone 0.06 uIU/mL (0.32-4.0); Vitamin D 25-OH Total 75.2 ng/mL (>30)
== END 2024-09-24 08:52 | disposition home or self-care (01) ==
LOC: HO.LAB 08:51
PROVIDERS: PCP Internal Medicine; Visit Provider Internal Medicine
DX: E78.00 Pure hypercholesterolemia, unspecified (principal); R73.02 Impaired glucose tolerance (oral)
CPT/HCPCS: 36415; 80053; 80061; 82306; 82607; 82746; 83036; 84439; 84443; 85025

== ENCOUNTER 2024-09-28 15:37 | Outpatient (AMB) | payer MEDICARE, SELFPAY ==
[2024-09-28 15:42] VITALS: BP 134/86; PULSE 50; RESP 16; TEMP 35.7; O2SAT 97; BMI 30.1
--- NOTE | 2024-09-28 15:42 | A.OFFPC_ITS ---
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 Accompanied by: Self / Same As Patient Allergies No Known Allergies Allergy (Verified 09/28/24 15:43) Medication List - Last Reconciled 09/28/24 by Larry Arellano MD biotin (Hair, Skin and Nails (biotin)) mcg PO cholecalciferol (vitamin D3) 25 mcg PO DAILY cyanocobalamin (vitamin B-12) 1,000 mcg PO DAILY levothyroxine 137 mcg PO DAILY Tobacco use date assessed: 09/28/24 Fall risk assessment: No Falls in past year Last assessed Fall Risk: 09/28/24 Dental Screening Dental Screen Date: 09/28/24 Did you have a dental visit in the last 12 months?: Yes Did you have a dental problem in the last 6 months where you did not have access to dental care?: No Was dental information given to patient?: Patient has dentist HPI 6 months - F/U HPI Details colon test December 23, 2024 planned and stool test was told positive and antibiotic given better now [facility] Medical History (Updated 09/28/24 @ 16:32 by Larry Arellano MD) Breast cancer screening by mammogram Knee buckling Lyme disease Peripheral vascular disease Hypercholesterolemia Obesity (BMI 30-39.9) Pernicious anemia Vitamin D deficiency Hypothyroid Surgical History No pertinent past surgical history Family History Father No problems noted. Mother Melanoma Maternal Grandfather CVD (cerebrovascular disease) Social History Housing: Condominium Alcohol intake: current Comment: 3-4x a week 2 drinks Patient Tobacco Use Status: Former Tobacco user Tobacco use type: Cigarette Years Smoked: 29 years old e-Cigarette/Vaping Use: Never Used Second Hand Smoke Exposure: No service: No Current occupational status: retired Cognitive needs: Yes (cane ) Hearing needs: No Vision needs: Yes Questionnaire PHQ-9 Over the last 2 weeks, how often have you been bothered by any of the following problems? 1. Little interest or pleasure in doing things: not at all 2. Feeling down, depressed, or hopeless: not at all 3. Trouble falling or staying asleep, or sleeping too much: not at all 4. Feeling tired or having little energy: not at all 5. Poor appetite or overeating: not at all 6. Feeling bad about yourself - or that you are a failure or have let yourself or your family down: not at all 7. Trouble concentrating on things, such as reading the newspaper or watching television: not at all 8. Moving or speaking so slowly that other people could have noticed. Or the opposite - being so fidgety or restless that you have been moving around a lot more than usual: not at all 9. Thoughts that you would be better off or of hurting yourself in some way: not at all Total score: 0 Depression Screening Interpretation: Negative Depression Screening Done: Yes 41704 - PHQ-9 Billing: Yes Source: Developed by Drs. Andrew Wei, Misa Diop, Arturo Medellin and colleagues, with an educational hood from [employer]. Thrive Questionnaire Date Thrive assessed: 09/28/24 I am a: Patient What is your living situation today?: I have a steady place to live Within the past 12 months, did the food you bought not last and you didn't have the money to get more?: Never true Within the past 12 months, did you worry whether your food would run out before you got money to buy more?: Never true Do you have trouble paying for medicines?: No Do you have trouble getting transportation to medical appointments?: No Do you have trouble paying your heating and electricity bill?: No Do you have trouble taking care of your child, family member or friend?: No Do you have trouble with day-to-day activities such as bathing, preparing meals, shopping, managing finances, etc.?: No Are you currently unemployed and looking for a job?: No Are you interested in more education?: No Please select the resources that you would like help with: None Currently or been in a relationship where the following occur: No concerns reported THRIVE Score: 0 AUDIT C Alcohol Use Questionnaire (AUDIT-C) 1. How often do you have a drink containing alcohol?: Monthly or less 2. How many drinks containing alcohol do you have on a typical day when you are drinking?: 1 or 2 3. How often do you have six or more drinks on one occasion?: Never Total Score: 1 STACI-7 AMB Questionnaire STACI-7 Date STACI - 7 assessed: 09/28/24 Feeling nervous, anxious, or on edge: 0 = Not at all Not being able to stop or control worryin = Not at all Worrying too much about different things: 0 = Not at all Trouble relaxin = Not at all Being so restless that it is hard to sit still: 0 = Not at all Becoming easily annoyed or irritable: 0 = Not at all Feeling afraid as if something awful might happen: 0 = Not at all Total STACI-7 score (0-4 normal; 5-9 mild; 10-14 moderate; 15-21 severe): 0 Source: Developed by Drs. Andrew Wei, Misa Diop, Arturo Medellin and colleagues, with an educational hood from [employer]. STACI-7 Assessment Billing STACI-7 Assessment Tool: STACI-7 Assessment 87064 Physical exam (Primary Care) Vital Signs: Last Vital Signs Temp 96.2 F L 09/28/24 15:42 Pulse 50 09/28/24 15:42 Resp 16 09/28/24 15:42 BP 134/86 09/28/24 15:42 Pulse Ox 97 09/28/24 15:42 Oxygen Delivery Method Room Air 09/28/24 15:42 BMI result Body Mass Index 30.1 Tobacco/Smoking Status: Tobacco use Status Tobacco use date assessed 09/28/24 09/28/24 15:54 Patient Tobacco Use Status Former Tobacco user 09/28/24 15:54 Tobacco use type Cigarette 09/28/24 15:54 e-Cigarette/Vaping Use Never Used 09/28/24 15:54 PHQ-9: PHQ-9 Score PHQ-9: Total score 0 09/28/24 15:54 Depression Screening Interpretation: Negative Thrive Assessment: Date of Thrive Assessment Date Thrive assessed 09/28/24 09/28/24 15:54 Currently or been in a relationship where the following occur: No concerns reported Const General: alert; No acute distress Eyes Conjunctivae: conjunctivae normal Resp Auscultation: clear to auscultation bilaterally Cardio Rate: regular rate Rhythm: regular rhythm GI Inspection: Yes normal to inspection Extrem General: Yes normal to inspection and No edema Coding Level of Care Code Est Pt Level 4 (98858) Complex EM visit Add On G2211 Diagnoses Tubular adenoma of colon D12.6 Impaired glucose tolerance R73.02 Hypercholesterolemia E78.00 Obesity (BMI 30-39.9) E66.9 Acquired hypothyroidism E03.9 Hypothyroidism type: acquired Pernicious anemia D51.0 Trigger finger of all digits of both hands M65.321; M65.311; M65.312; M65.322; M65.331 Additional Codes STACI-7 Assessment Billing - STACI-7 Assessment Tool: STACI-7 Assessment 86076 ([id number]) PHQ-9 - 02048 - PHQ-9 Billing: Yes ([id number]) Assessment & Plan Assessment & Plan (1) Tubular adenoma of colon: Comment: Two thousand seventeen Code(s): D12.6 - Benign neoplasm of colon, unspecified Category: Medical Plan: Patient has been seen by gastro and has a planned colonoscopy (2) Impaired glucose tolerance: Code(s): R73.02 - Impaired glucose tolerance (oral) Category: Medical Plan: Decrease the amount of carbohydrate intake, pasta, bread, rice and potatoes are all sugar and that is aside from all the sweet stuff, remember that fruits are good but they are Sweet also. (3) Hypercholesterolemia: Code(s): E78.00 - Pure hypercholesterolemia, unspecified Category: Medical Plan: Avoid fried foods, chicken skin, eggs, butter margarine, pastries and meat. Be it pork or beef they have a lot of cholesterol LDL goal of less than 130 and triglyceride of less than 150 patient is diet controlled (4) Obesity (BMI 30-39.9): Code(s): E66.9 - Obesity, unspecified Category: Medical Plan: Continue with diet and exercise. Noted loss of weight (5) Hypothyroid: Code(s): E03.9 - Hypothyroidism, unspecified Category: Medical Qualifiers: Hypothyroidism type: acquired Qualified Code(s): E03.9 - Hypothyroidism, unspecified Plan: Will need repeat testing of the thyroid (6) Pernicious anemia: Code(s): D51.0 - Vitamin B12 deficiency anemia due to intrinsic factor deficiency Category: Medical Plan: Discussed that vitamin B12 can be decreased to once a week. (7) Trigger finger of all digits of both hands: Code(s): M65.321 - Trigger finger, right index finger; M65.311 - Trigger thumb, right thumb; M65.312 - Trigger thumb, left thumb; M65.322 - Trigger finger, left index finger; M65.331 - Trigger finger, right middle finger Category: Medical Plan: deny any treatment for now Plan History of Present Illness The patient is an 79-year-old female presenting with notable weight loss and follow-up on her chronic conditions including hypothyroidism, pernicious anemia, hypercholesterolemia, and essential hypertension. Her current thyroid level is 0.06, significantly lower than normal, prompting a planned reduction in medication before conducting follow-up testing. She is not anemic at present, and her previous low Vitamin B12 levels are now excessive, necessitating reduced supplementation frequency. Her LDL is maintained at a desirable level through lifestyle modifications. The patient is not on antihypertensive medication but monitors her condition through lifestyle changes. 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 Health maintenance screenings including mammograms, bone density scans, and vaccinations are current. 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 5 months, while considering a dose reduction of thyroid medication depending on results. Due to elevated Vitamin , reduce supplementation to once a week. Maintain current lifestyle measures for cholesterol management. For the patient's trigger finger, continue conservative treatment and consider orthopedics if problems persist. Current vaccines are up to date, with future COVID booster discussion if applicable. Reassessment of conditions and regular follow-up to continue as planned: . Patient was informed and verbally consented to the use of an ambient scribe for clinic note documentation during this visit. Discussion Notes We discussed the current management of her hypothyroidism given the low TSH level and agreed to follow up with repeated testing to reassess medication needs. The patient is advised to transition her Vitamin B12 supplementation to weekly doses due to increased levels. She is informed of the steady management of her LDL through diet and emphasizes maintaining these lifestyle measures. We also talked about the possibility of involving orthopedic services for trigger finger symptoms if they worsen. I confirmed that all her vaccinations are up to date and discussed the potential need for a new COVID-19 booster in the future. The patient expressed understanding and is instructed to follow up as planned. Patient Instructions - Continue thyroid medication and plan for follow-up testing in 1.5 months - Take Vitamin B12 supplement once a week - Maintain healthy diet and regular exercise to control cholesterol levels - Report any changes or concerns with trigger finger; consider altering activities - All vaccinations are current, inquire about the new COVID booster when available - Schedule follow-up appointments as advised Medications: Changed From cyanocobalamin (vitamin B-12) 1,000 mcg PO DAILY To cyanocobalamin (vitamin B-12) 1,000 mcg PO .once a week
== END 2024-09-28 16:38 | disposition home or self-care (01) ==
LOC: HO.HMCH 15:37
PROVIDERS: PCP Internal Medicine; Visit Provider Internal Medicine
DX: D12.6 Benign neoplasm of colon, unspecified (principal); E66.9 Obesity, unspecified; Z68.30 Body mass index [BMI] 30.0-30.9, adult; R73.02 Impaired glucose tolerance (oral); E78.00 Pure hypercholesterolemia, unspecified; E03.9 Hypothyroidism, unspecified; D51.0 Vitamin B12 deficiency anemia due to intrinsic factor deficiency; M65.321 Trigger finger, right index finger; M65.311 Trigger thumb, right thumb; M65.312 Trigger thumb, left thumb; M65.322 Trigger finger, left index finger; M65.331 Trigger finger, right middle finger

== ENCOUNTER → 2024-09-28 15:37 | Outpatient (BNVA) | payer MEDICARE, SELFPAY | PROVIDERS: PCP Internal Medicine; Visit Provider Internal Medicine | DX: D12.6 Benign neoplasm of colon, unspecified (principal); R73.02 Impaired glucose tolerance (oral); E78.00 Pure hypercholesterolemia, unspecified; E66.9 Obesity, unspecified; E03.9 Hypothyroidism, unspecified; D51.0 Vitamin B12 deficiency anemia due to intrinsic factor deficiency; M65.321 Trigger finger, right index finger; M65.311 Trigger thumb, right thumb; M65.312 Trigger thumb, left thumb; M65.322 Trigger finger, left index finger; M65.331 Trigger finger, right middle finger | CPT/HCPCS: 96127; 99212 ==

== ENCOUNTER 2024-11-01 12:05 | Outpatient (REF) | payer MEDICARE, SELFPAY ==
[2024-11-01 14:31] LABS: Thyroid Stimulating Hormone 0.02 uIU/mL (0.32-4.0)
== END 2024-11-01 12:06 | disposition home or self-care (01) ==
LOC: HO.LAB 12:05
PROVIDERS: PCP Internal Medicine; Visit Provider Internal Medicine
DX: E03.9 Hypothyroidism, unspecified (principal)
CPT/HCPCS: 36415; 84443

== ENCOUNTER 2024-12-13 12:39 | Outpatient (REF) | payer MEDICARE, SELFPAY ==
[2024-12-13 13:53] LABS: Free T4 (Free Thyroxine) 1.53 ng/dL (0.71-1.85); Thyroid Stimulating Hormone 0.03 uIU/mL (0.32-4.0)
== END 2024-12-13 12:40 | disposition home or self-care (01) ==
LOC: HO.LAB 12:39
PROVIDERS: PCP Internal Medicine; Visit Provider Internal Medicine
DX: E03.9 Hypothyroidism, unspecified (principal)
CPT/HCPCS: 36415; 84439; 84443

== ENCOUNTER 2025-02-08 12:05 | Outpatient (REF) | payer MEDICARE, SELFPAY ==
--- OUTSIDE RECORDS SUMMARY | 2025-02-08 13:28 | XMS_ITS | Clinical Summary ---
Author Organization [facility] Address [address] [address] Phone Care Team Providers Care Machine Filler Servicer Name Role Phone Larry Arellano MD Primary Care Provider [phone] Medications levothyroxine (TIROSINT) 137 mcg Cap Take 137 mcg by mouth every morning. Active Active Problems Problem Noted Date Diagnosed Date Palpitations 11/22/2021 Dizziness and giddiness 11/22/2021 Social History Tobacco Use Types Packs/Day Years Used Date Smoking Tobacco: Never Assessed Education Answer Date Recorded Are you interested in more education? Not on cammie e 10/19/2022 Are you concerned about learning? Not on file 10/19/2022 No 10/19/2022 No 10/19/2022 Digital Access Answer Date Recorded No 11/17/2022 No 11/17/2022 Reliable internet access at home? Not on file 11/17/2022 Device with a working camera? Not on file Comments Unknown Sex and Gender Information Value Date Recorded Sex Assigned at Not on file Legal Sex Female 9:42 AM EDT Gender Identity Not on file Sexual Orientation Not on file Last Filed Vital Signs Vital Sign Reading Time Taken Comments Blood Pressure 126/72 11/22/2021 10:05 AM EDT Pulse 71 11/22/2021 10:05 AM EDT Temperature - - Respiratory Rate - - Oxygen Saturation 98% 11/22/2021 10:05 AM EDT Inhaled Oxygen Concentration - - Weight 99.3 kg (219 lb) 11/22/2021 10:05 AM EDT Height - - Body Mass Index - - Plan of Treatment Health Maintenance Due Date Last Done Comments Adult Td,Tdap Booster 1944 LIPID PANEL 1944 TSH LEVEL 1944 DEPRESSION SCREENING 1956 SMOKING Hx and SMOKELESS TOB ACCO SCREENING 1957 PNEUMOCOCCAL VACCINES (50+ y ears) (1 of 1 - PCV) 1994 ZOSTER VACCINES (1 of 2) 1994 OSTEOPOROSIS SCREENING INITI AL (ONE-TIME) 2009 RSV VACCINE (1 - 1-dose 75+ series) 2019 COVID-19 VACCINE (1 - 2023-2 5 season) 2024 HEPATITIS A VACCINES Aged Out No long er eligible based on patient's age to complete this topic HIB VACCINES Aged Out No longer eligi ble based on patient's age to complete this topic MENINGOCOCCAL VACCINES (ACWY) Aged Out No longer eligible based on patient's age to complete this topic MENINGOCOCCAL VACCINES (B) Aged Out N o longer eligible based on patient's age to complete this topic Medical Devices Not on file Insurance [employer] Member Subscriber Plan / Payer (Ef fective 2020-Present) Name:Darren Guerrier Relation to Subscriber:Self Name:Darren Guerrier Payer ID:Not on file Type:Medicare Address: [place] [id number] [place] [address] [address] [address] [place] [address] [address] [place] [address] [address] [place] [address] MEDICARE HMO REPLACEMENT [employer]PLACEMENT [employer] Care Teams Machine Filler Servicer Relationship Specialty Start Date End Date Larry Arellano MD [address] [place] [address] Drive [address] [place] [address] PCP - General Internal Medicine 10/24/21 Additional Source Comments The information contained in this document represents components of the legal health record. It is not the complete legal health record.[facility]
[2025-02-08 14:25] LABS: Free T4 (Free Thyroxine) 1.26 ng/dL (0.71-1.85); Thyroid Stimulating Hormone 0.77 uIU/mL (0.32-4.0)
== END 2025-02-08 12:06 | disposition home or self-care (01) ==
LOC: HO.LAB 12:05
PROVIDERS: PCP Internal Medicine; Visit Provider Internal Medicine
DX: E03.9 Hypothyroidism, unspecified (principal)
CPT/HCPCS: 36415; 84439; 84443

== ENCOUNTER 2025-02-22 12:50 | Outpatient (AMB) | payer MEDICARE, SELFPAY ==
[2025-02-22 12:53] VITALS: BP 132/68; PULSE 56; O2SAT 97; BMI 30.7
--- NOTE | 2025-02-22 12:53 | MHC.PC.OV ---
Vital Signs 02/22/25 12:53 Height 5 ft 7 in Weight 196 lb BMI 30.7 BP 132/68 Blood Pressure Location Lt brachial Position Sitting Pulse 56 Pulse Source Pulse Oximeter Pulse Oximetry (%) 97 Oxygen Delivery Method Room Air Intake Visit Reasons: Annual Exam Allergies No Known Allergies Allergy (Verified 02/22/25 12:54) Medication List - Last Reconciled 02/22/25 by Larry Arellano MD levothyroxine 100 mcg PO .QD Tobacco use date assessed: 09/28/24 Fall risk assessment: No Falls in past year Last assessed Fall Risk: 02/22/25 Dental Screening Dental Screen Date: 02/22/25 Did you have a dental visit in the last 12 months?: Yes Did you have a dental problem in the last 6 months where you did not have access to dental care?: No Was dental information given to patient?: Patient has dentist [facility] Medical History (Updated 09/28/24 @ 16:32 by Larry Arellano MD) Breast cancer screening by mammogram Knee buckling Lyme disease Peripheral vascular disease Hypercholesterolemia Obesity (BMI 30-39.9) Pernicious anemia Vitamin D deficiency Hypothyroid Surgical History No pertinent past surgical history Family History Father No problems noted. Mother Melanoma Maternal Grandfather CVD (cerebrovascular disease) Social History (Updated 02/22/25 @ 13:10 by Larry Arellano MD) Housing: Condominium Alcohol intake: current Comment: 3-4x a week 2 drinks= friday 1-2 drinks (01/2025) Patient Tobacco Use Status: Former Tobacco user Tobacco use type: Cigarette Years Smoked: 29 years old e-Cigarette/Vaping Use: Never Used Second Hand Smoke Exposure: No service: No Current occupational status: retired Cognitive needs: Yes (cane ) Hearing needs: No Vision needs: Yes Questionnaire PHQ-9 Over the last 2 weeks, how often have you been bothered by any of the following problems? 1. Little interest or pleasure in doing things: not at all 2. Feeling down, depressed, or hopeless: not at all 3. Trouble falling or staying asleep, or sleeping too much: not at all 4. Feeling tired or having little energy: not at all 5. Poor appetite or overeating: not at all 6. Feeling bad about yourself - or that you are a failure or have let yourself or your family down: not at all 7. Trouble concentrating on things, such as reading the newspaper or watching television: not at all 8. Moving or speaking so slowly that other people could have noticed. Or the opposite - being so fidgety or restless that you have been moving around a lot more than usual: not at all 9. Thoughts that you would be better off or of hurting yourself in some way: not at all Total score: 0 Depression Screening Interpretation: Negative Depression Screening Done: Yes Source: Developed by Drs. Andrew Wei, Misa Diop, Arturo Medellin and colleagues, with an educational hood from [employer]. Thrive Questionnaire Date Thrive assessed: 02/22/25 I am a: Patient What is your living situation today?: I have a steady place to live Within the past 12 months, did the food you bought not last and you didn't have the money to get more?: Never true Within the past 12 months, did you worry whether your food would run out before you got money to buy more?: Never true Do you have trouble paying for medicines?: No Do you have trouble getting transportation to medical appointments?: No Do you have trouble paying your heating and electricity bill?: No Do you have trouble taking care of your child, family member or friend?: No Do you have trouble with day-to-day activities such as bathing, preparing meals, shopping, managing finances, etc.?: No Are you currently unemployed and looking for a job?: No Are you interested in more education?: No Please select the resources that you would like help with: None Currently or been in a relationship where the following occur: No concerns reported THRIVE Score: 0 AUDIT C Alcohol Use Questionnaire (AUDIT-C) 1. How often do you have a drink containing alcohol?: 2-3 times a week 2. How many drinks containing alcohol do you have on a typical day when you are drinking?: 1 or 2 3. How often do you have six or more drinks on one occasion?: Never Total Score: 3 STACI-7 AMB Questionnaire STACI-7 Date STACI - 7 assessed: 09/28/24 Feeling nervous, anxious, or on edge: 0 = Not at all Not being able to stop or control worryin = Not at all Worrying too much about different things: 0 = Not at all Trouble relaxin = Not at all Being so restless that it is hard to sit still: 0 = Not at all Becoming easily annoyed or irritable: 0 = Not at all Feeling afraid as if something awful might happen: 0 = Not at all Total STACI-7 score (0-4 normal; 5-9 mild; 10-14 moderate; 15-21 severe): 0 Source: Developed by Drs. Andrew Wei, Misa Diop, Arturo Medellin and colleagues, with an educational hood from [employer]. STACI-7 Assessment Billing STACI-7 Assessment Tool: STACI-7 Assessment 41779 Review of Systems Const Denies poor appetite and Denies weakness Eyes Denies no additional complaints ENT Reports Normal hearing present, Denies dizziness, Denies nasal congestion, Denies tinnitus and Denies sore throat Card Denies chest pain, Denies syncope, Denies rapid heart rate and Denies dyspnea Resp Denies cough and Denies dyspnea GI Denies change in stool character, Reports constipation, Denies diarrhea, Denies nausea and Denies vomiting Denies urinary frequency, Denies difficulty voiding and Denies dysuria Neuro Reports Normal hearing present, Denies confusion, Denies dizziness, Denies syncope and Denies weakness Psych Denies confusion Physical exam (Primary Care) Vital Signs: Last Vital Signs Pulse 56 02/22/25 12:53 BP 132/68 02/22/25 12:53 Pulse Ox 97 02/22/25 12:53 Oxygen Delivery Method Room Air 02/22/25 12:53 BMI result Body Mass Index 30.7 Tobacco/Smoking Status: Tobacco use Status Tobacco use date assessed 09/28/24 02/22/25 13:02 Patient Tobacco Use Status Former Tobacco user 02/22/25 13:10 Tobacco use type Cigarette 02/22/25 13:10 e-Cigarette/Vaping Use Never Used 02/22/25 13:10 PHQ-9: PHQ-9 Score PHQ-9: Total score 0 02/22/25 13:02 Depression Screening Interpretation: Negative Thrive Assessment: Date of Thrive Assessment Date Thrive assessed 02/22/25 02/22/25 13:02 Currently or been in a relationship where the following occur: No concerns reported Const General: No confusion Orientation/consciousness: No confusion HENMT Head: Yes normocephalic Ears: external ears normal and TM's normal bilaterally Face and sinus: Yes normal facial exam Mouth: moist mucous membranes Throat: Yes tonsils normal Eyes Conjunctivae: conjunctivae normal Pupils: Equal, round and reactive pupils present and Pupil accommodation reflex normal Direct Ophthalmoscopy: normal light reflex Neck Neck: No lymphadenopathy Thyroid: Thyroid normal Chest Chest palpation & inspection: normal inspection of the chest Resp Effort & Inspection: normal respiratory effort and no audible wheezes Auscultation: clear to auscultation bilaterally, no crackles, no wheezes and lung sounds not diminished Cardio Rate: regular rate Rhythm: regular rhythm Peripheral pulses: radial pulses present and dorsalis pedis present GI Palpation (GI): no masses Auscultation: normal bowel sounds and normoactive bowel sounds Rectal Exam - Female: deferred Skin General skin exam: no rashes or lesions noted Rashes: no rashes Neuro General: No confusion Cranial nerves: Yes Equal, round and reactive pupils present and Yes Normal hearing present Cognition (Neuro): normal cognition Gait exam (Neuro): Normal gait present Motor exam (neuro): 5/5 motor strength present throughout Deep tendon reflexes (DTR's): Right brachioradialis reflex intensity grade: 2+, Left brachioradialis reflex intensity grade: 2+, Right patellar reflex intensity grade: 2+ and Left patellar reflex intensity grade: 2+ Extrem General: No edema Coding Level of Care Code Est Pt Prev Care >65y(72080) Diagnoses Annual physical exam Z00.00 Obesity (BMI 30-39.9) E66.9 Osteopenia M85.80 Acquired hypothyroidism E03.9 Hypothyroidism type: acquired Impaired glucose tolerance R73.02 Hypercholesterolemia E78.00 Hypertension I10 Additional Codes STACI-7 Assessment Billing - STACI-7 Assessment Tool: STACI-7 Assessment 73808 ([id number]) Assessment & Plan Assessment & Plan (1) Annual physical exam: Code(s): Z00.00 - Encounter for general adult medical examination without abnormal findings Category: Medical Plan: Patient is advised to eat healthy, keep well hydrated, keep active and have adequate sleep. (2) Obesity (BMI 30-39.9): Code(s): E66.9 - Obesity, unspecified Category: Medical Plan: Diet and exercise (3) Osteopenia: Comment: 01/2023 Code(s): M85.80 - Other specified disorders of bone density and structure, unspecified site Category: Medical Plan: Reminded patient about the bone density discussed about calcium and vitamin-D (4) Hypothyroid: Code(s): E03.9 - Hypothyroidism, unspecified Category: Medical Qualifiers: Hypothyroidism type: acquired Qualified Code(s): E03.9 - Hypothyroidism, unspecified Plan: Continue with present thyroid medication (5) Impaired glucose tolerance: Code(s): R73.02 - Impaired glucose tolerance (oral) Category: Medical Plan: Decrease the amount of carbohydrate intake, pasta, bread, rice and potatoes are all sugar and that is aside from all the sweet stuff, remember that fruits are good but they are Sweet also. (6) Hypercholesterolemia: Code(s): E78.00 - Pure hypercholesterolemia, unspecified Category: Medical Plan: Avoid fried foods, chicken skin, eggs, butter margarine, pastries and meat. Be it pork or beef they have a lot of cholesterol Sarai blood work is normal (7) Hypertension: Code(s): I10 - Essential (primary) hypertension Category: Medical Plan: Continue with blood pressure medication. Decrease salt intake and exercise presently blood pressure is controlled without medication Plan History of Present Illness The patient is an 79-year-old female presenting for a physical examination and management of chronic conditions. She has a history of hypothyroidism, managed with thyroid medication, with normal thyroid function tests in January 2019. Hypercholesterolemia is present, with normal cholesterol levels noted in September 2024. Glucose intolerance and osteoarthritis are noted, with the latter causing leg pain rated 3/10, particularly when sleeping on the left side. Peripheral vascular disease and osteopenia are present, with a bone density test due. Hypertension is controlled without medication, and cognitive impairment is noted. A colonoscopy in December 2024 revealed a tubular adenoma, with a follow-up scheduled in five years. Health Maintenance - Mammogram is up to date - Bone density test is due - Colonoscopy follow-up scheduled in five years - Advised on diet and exercise - Discussed calcium and vitamin D supplementation - Recommended flu shot in late February to March - Encouraged COVID-19 vaccination during fall Social History - Alcohol: Consumes one to two drinks on Friday afternoons - Tobacco: Denies cigarette use - Travel: Plans to visit [place] in March Review of Systems - General: Denies dizziness, nausea, vomiting, fever - Cardiovascular: Denies chest pain, heaviness, discomfort - Respiratory: Denies shortness of breath, cough - Gastrointestinal: Denies swallowing difficulties, reports good bowel movements - Genitourinary: Reports no issues with urination - Neurological: Denies passing out, reports no hearing issues Physical Exam General: Cooperative, obese, healthy appearing, comfortable, no acute distress and well developed Orientation: Patient oriented x3 Limitations: No limitations Head: Normal to inspection Ears: Hearing grossly normal bilaterally, some ear wax present but open Nose: Normal external nose present Face and sinus: Normal facial exam Eyes: Appearance normal, both eyes and all related structures, cataracts noted but not significant Neck: Normal visual inspection and Yes full ROM Respiratory: Normal respiratory effort and able to speak in complete sentences. Clear to auscultation bilaterally Cardiovascular: Regular rate and rhythm. Normal S1 and S2 GI: Normal to inspection. Soft to palpation and nontender Skin: No rashes or lesions noted Neuro: Patient oriented x3 Extremities: Normal to inspection, pain noted in legs, rated 3/10, not in hip area, no lumps or bumps noted Results - Labs: Normal blood count, normal thyroid test, normal cholesterol, high B12 - Procedures: Colonoscopy in December 2024 showed tubular adenoma Plan Patient was informed and verbally consented to the use of an ambient scribe for clinic note documentation during this visit. 1. Hypothyroidism The patient will continue with her current thyroid medication as her thyroid function tests are normal. 2. Hypercholesterolemia Cholesterol levels are currently normal, and no changes to the management plan are necessary at this time. 3. Glucose Intolerance Diet and exercise were discussed as part of the management plan for glucose intolerance. 4. Osteoarthritis The patient reports leg pain associated with osteoarthritis, rated 3/10, but has not opted for specific treatment at this time. 5. Peripheral Vascular Disease No specific management changes were discussed for peripheral vascular disease during this visit. 6. Osteopenia A bone density test is due, and calcium and vitamin D supplementation were discussed. 7. Hypertension Hypertension is currently controlled without medication, and no changes to the management plan are necessary. 8. Cognitive Impairment No specific management changes were discussed for cognitive impairment during this visit. 9. Tubular Adenoma A follow-up colonoscopy is scheduled in five years to monitor the tubular adenoma. Discussion Notes I discussed with the patient the importance of continuing her current thyroid medication and maintaining her cholesterol levels through diet and exercise. We reviewed her osteoarthritis symptoms and agreed to monitor the pain without immediate intervention. I advised her on the upcoming bone density test and the benefits of calcium and vitamin D supplementation. We also discussed the timing for her next colonoscopy and the importance of regular screenings. Patient Instructions - Continue taking thyroid medication as prescribed. - Maintain a healthy diet and exercise regularly to manage cholesterol and glucose levels. - Schedule a bone density test and consider calcium and vitamin D supplements. - Plan for a follow-up colonoscopy in five years. - Get a flu shot in late February to March and consider a COVID-19 vaccine in the fall. Orders: Orders Complete Blood Count Auto Diff 6 Months I10 - Essential (primary) hypertension Thyroid Stimulating Hormone 6 Months I10 - Essential (primary) hypertension Lipid Panel 6 Months E78.00 - Pure hypercholesterolemia, unspecified, I10 - Essential (primary) hypertension Comprehensive Met. Panel 6 Months I10 - Essential (primary) hypertension Free T4 (Free Thyroxine) 6 Months I10 - Essential (primary) hypertension Vitamin B12 and Folate 6 Months I10 - Essential (primary) hypertension Vitamin D 25-OH Total 6 Months I10 - Essential (primary) hypertension Hemoglobin A1c 6 Months I10 - Essential (primary) hypertension XR DEXA axial skeleton Today M81.0 - Age-related osteoporosis without current pathological fracture, M85.80 - Other specified disorders of bone density and structure, unspecified site Medications: Refilled levothyroxine 100 mcg PO .QD 90 tabs 2RF E03.9 - Hypothyroidism, unspecified
--- OUTSIDE RECORDS SUMMARY | 2025-02-22 14:05 | XMS_ITS | Clinical Summary ---
Author Organization [facility] Address [address] [address] Phone Care Team Providers Care Retail Marketing Coordinator Name Role Phone Larry Arellano MD Primary Care Provider [phone] Medications levothyroxine (TIROSINT) 137 mcg Cap Take [...] Guerrier Payer ID:Not on file Type:Medicare Address: [place] [id number] [place] [address] [address] [place] [address] [address] [place] [place] [address] [place] [address] MEDICARE HMO REPLACEMENT [place]AC[place] MED[place]ARE HMO REPLACEMENT [place] [employer] REPLACEMENT Care Teams Retail Marketing Coordinator Relationship Specialty Start Date End Date Larry Arellano MD [address] [place] [address] Drive [address] [place] [address] PCP - General Internal Medicine 10/24/21 Additional Source Comments The information contained in this document represents components of the legal health record. It is not the complete legal health record.[facility]
== END 2025-02-22 13:24 | disposition home or self-care (01) ==
LOC: HO.HMCH 12:51
PROVIDERS: PCP Internal Medicine; Visit Provider Internal Medicine
DX: Z00.00 Encounter for general adult medical examination without abnormal findings (principal); E66.9 Obesity, unspecified; Z68.30 Body mass index [BMI] 30.0-30.9, adult; M85.80 Other specified disorders of bone density and structure, unspecified site; E03.9 Hypothyroidism, unspecified; R73.02 Impaired glucose tolerance (oral); E78.00 Pure hypercholesterolemia, unspecified; I10 Essential (primary) hypertension

== ENCOUNTER → 2025-02-22 12:50 | Outpatient (BNVA) | payer MEDICARE, SELFPAY | PROVIDERS: PCP Internal Medicine; Visit Provider Internal Medicine | DX: Z00.00 Encounter for general adult medical examination without abnormal findings (principal); E66.9 Obesity, unspecified; I10 Essential (primary) hypertension; M85.80 Other specified disorders of bone density and structure, unspecified site; E03.9 Hypothyroidism, unspecified; R73.02 Impaired glucose tolerance (oral); E78.00 Pure hypercholesterolemia, unspecified; I73.9 Peripheral vascular disease, unspecified; M81.0 Age-related osteoporosis without current pathological fracture; Z68.30 Body mass index [BMI] 30.0-30.9, adult | CPT/HCPCS: 96127; 99397 ==

== ENCOUNTER 2025-05-26 09:43 | Outpatient (REF) | payer MEDICARE, SELFPAY ==
--- NOTE | ~2025-05-26 | MM_ITS ---
EXAMINATION: MM SCREENING DIGITAL BREAST TOMOSYNTHESIS, BILATERAL CLINICAL INFORMATION: Screening. Asymptomatic. COMPARISON: Mammography: Comparison is made with available priors TECHNIQUE: Digital breast mammography with tomosynthesis is performed in both the craniocaudal and mediolateral oblique views along with computer-aided detection (CAD). FINDINGS: The breasts are heterogeneously dense, which may obscure small masses. There are no significant masses, abnormal calcifications, or other abnormalities. MM/MM tomosynthesis screening BI IMPRESSION: No mammographic evidence of malignancy. ASSESSMENT: BI-RADS Category 1: Negative RECOMMENDATION: Routine annual mammography screening. 1 year F/U This examination should not preclude the clinical evaluation of a suspicious palpable abnormality. This patient's information was entered into a reminder system with a target due date for their next mammogram. Electronically signed by: Mariella De La Torre DO 05/27/2025 06:04 PM [facility]
--- NOTE | ~2025-05-26 | MM_ITS ---
EXAMINATION: DXA BONE DENSITY AXIAL HISTORY: M81.0 - Age-related osteoporosis without current pathological fracture TECHNIQUE: [employer] Dual energy absorptiometry (DEXA) of the lumbar spine, total left hip, and femoral neck was performed. COMPARISON: Comparison is made with the prior examination dated 02/07/2023. FINDINGS: The bone mineral density of the lumbar spine is 1.201 g/cm2, corresponding to a T-score of 0.2, and a Z-score of 1.2. This is indicative of normal bone mineral density. This represents a BMD change of -6.2% compared to the prior exam. This is statistically significant. The bone mineral density of the left total hip is 0.891 g/cm2, corresponding to a T-score of -0.9, and a Z-score of 0.5. This is indicative of normal bone mineral density. This represents a BMD change of -2.2% compared to the prior exam. This is not statistically significant. The bone mineral density of the left femoral neck is 0.807 g/cm2, corresponding to a T-score of -1.7, and a Z-score of 0.0. This is indicative of osteopenia. This represents a BMD change of 1.3% compared to the prior exam. FRACTURE RISK: The FRAX index suggests a ten year probability of major osteoporotic fracture of 13.6%, and of hip fracture 3.5%. MM/XR DEXA axial skeleton IMPRESSION: Based on bone mineral density, and according to World Health Organization (WHO) criteria, the diagnosis is consistent with osteopenia. Statistically, 68% of repeat scans fall within 1 SD (+/- 0.010 g/cm2 for AP spine L1-L4) and 1 SD (+/- 0.012 g/cm2 for femur total) FRAX is a trademark of the [employer]'s [place] [employer] Metabolic Bone Disease, a World Health Organization (WHO) Collaborating Center. Electronically signed by: Andrew Cottrell MD 05/26/2025 10:23 AM [facility]
--- OUTSIDE RECORDS SUMMARY | 2025-05-26 11:14 | XMS_ITS | Clinical Summary ---
Author Organization [facility] Address [address] [address] Phone Care Team Providers Care Dining Services Director Name Role Phone Larry Arellano MD Primary Care Provider [phone] Medications levothyroxine (TIROSINT) 137 mcg Cap Take [...] VACCINE (1 - 1-dose 75+ series) 2019 INFLUENZA VACCINE (#1) 2025 COVID-19 VACCINE (1 - 2024-2 6 season) 2025 HEPATITIS A VACCINES Aged Out No long [...] [place] Care Teams Dining Services Director Relationship Specialty Start Date End Date Larry Arellano MD [address] [place] [address] PCP - General Internal Medicine 10/24/21 Additional Source Comments The information contained in this document represents components of the legal health record. It is not the complete legal health record.[facility]
== END 2025-05-26 09:44 | disposition home or self-care (01) ==
LOC: HO.MAMMO 09:43
PROVIDERS: PCP Internal Medicine; Visit Provider Internal Medicine
DX: M81.0 Age-related osteoporosis without current pathological fracture (principal); M85.852 Other specified disorders of bone density and structure, left thigh; Z12.31 Encounter for screening mammogram for malignant neoplasm of breast
CPT/HCPCS: 77063; 77067; 77080

== ENCOUNTER → 2025-05-26 10:00 | Outpatient (BNV) | payer MEDICARE, SELFPAY | PROVIDERS: PCP Internal Medicine; Visit Provider Radiology Diagnostic Radiology | DX: E28.39 Other primary ovarian failure (principal) | CPT/HCPCS: 77080 ==